=== PATIENT | female | born 1960 | race Caucasian/White ===

== ENCOUNTER → 2022-05-27 | Outpatient (CLI) | payer BC ==
--- NOTE | 2022-05-27 10:36 | USB ---
Reason for Exam: Clinical finding. Risk Values: Blanche 5 year model risk: 0.9%. NCI Lifetime model risk: 4.9%. Findings: The whole breast of the right breast, the axilla of the right breast and the retroareolar of the right breast were scanned. A complete US of all four quadrants of the breast, axilla, and retro-areolar region were reviewed. Suspicious hypoechoic, vascular mass with echogenic halo at the 11:00 position, 6 cm from the nipple. This measures 3.4 x 3.3 x 2.9 cm. There is an adjacent prominent low axillary tail 11:00 lymph node, 7 cm from the nipple measuring 11 x 9 x 9 mm. Cortical thickening up to 3.3 mm. No other axillary lymphadenopathy. No other solid or cystic lesion is seen. Overall Assessment: Incomplete: need additional imaging evaluation, BI-RAD 0 Management: Diagnostic Mammogram of both breasts. Electronically signed and approved by: Luh Lofton M.D. Radiologist
== END | disposition home or self-care (01) ==
LOC: RADUSWWP 09:47
PROVIDERS: ATTEND Internal Medicine
DX: N63.11 Unspecified lump in the right breast, upper outer quadrant (principal)

== ENCOUNTER → 2022-05-28 | Outpatient (CLI) | payer BC ==
[2022-05-28 13:07] VITALS: BP 143/82; PULSE 76; RESP 17; TEMP 98.1
--- NOTE | 2022-05-28 14:11 | P.GSHP ---
History of Present Illness H&P Date: 05/28/22 Chief Complaint: mass right breast Cora is a 61 year old white female seen in consultation for Dr. Dewitt regarding a mass in the right breast. She had a bilateral mammogram in September after which she was recommended to have a repeat right breast mammogram in 6 months. Most recently she noted a lump in her right breast May 19 and had a right breast mammogram and ultrasound performed revealing a lesion in the right breast which had changed from the September evaluation. She does not feel any other lumps masses or nodules of concern in either breast. She has not had any trauma to her breast. She is not complaining of any nipple discharge or skin changes. She's never had any surgery on her breast. The ultrasound revealed a 3.4 x 3.3 cm hypoechoic vascular mass at 11:00 There was also an adjacent prominent low axillary tail lymph node with cortical thickening up to 3.3 mm no other axillary lymphadenopathy Caffeine: 2 cups/day nicotine: stopped 2018 smoked for 10 years; 1/PPD chocolate: rare BCP: early for treatment of ovarian cyst Hormones: Negative Family History: mother: colon cancer father: lung cancer smoker maternal grandmother: colon cancer Patient had a colonoscopy 2021; to have it repeated in 2024 Hormonal History: menarche: 14 , breast fed: yes; age at first : 20 menopause: hysterectomy at 34; ? age at menopause done for endometriosis Surgical History: hysgterectomy tonsil/addenoid 2 ovarian surgeries right knee gallbladder 2 C-sections Medical History: hypothyroid hyperlipedemia diverticulosis Social History: nicotine: stopped 2017; as above alcohol: none drugs: none - Constitutional Constitutional: Denies chills, Denies fever - EENT Eyes: denies blurred vision, denies pain Ears: deny: decreased hearing, tinnitus Ears, nose, mouth and throat: Denies headache, Denies sore throat - Breasts Breasts: bilateral: as per HPI - Cardiovascular Cardiovascular: Denies chest pain, Denies shortness of breath - Respiratory Respiratory: Denies cough, Denies 7 - Gastrointestinal Gastrointestinal: Reports constipation, Reports diarrhea, Denies abdominal pain, Denies nausea, Denies vomiting - Genitourinary (Female) Genitourinary: Denies dysuria, Denies hematuria - Menstruation Menstruation: Reports postmenopausal - Musculoskeletal Musculoskeletal: Denies myalgias - Integumentary Integumentary: Denies pruritus, Denies rash - Neurological Neurological: Denies numbness, Denies weakness - Psychiatric Psychiatric: Denies anxiety, Denies depression - Endocrine Comment: hypothyroid - Hematologic/Lymphatic Comment: none - Allergic/Immunologic Comment: baby aspirin Allergic/Immunologic: Reports seasonal allergies Past Medical History Past Medical History: Hyperlipidemia, Thyroid Disorder Additional Past Medical History / Comment(s): diverticulosis History of Any Multi-Drug Resistant Organisms: None Reported Past Surgical History: Adenoidectomy, Section, Cholecystectomy, Hysterectomy, Orthopedic Surgery, Tonsillectomy Additional Past Surgical History / Comment(s): Right knee repair. Ovarian cyst removel. Past Anesthesia/Blood Transfusion Reactions: No Reported Reaction Past Psychological History: No Psychological Hx Reported Smoking Status: Former smoker Past Alcohol Use History: None Reported Additional Past Alcohol Use History / Comment(s): quit smoking 2017 Past Drug Use History: None Reported Medications and Allergies Home Medications Medication Instructions Recorded Confirmed Type Aspirin [Adult Low Dose Aspirin EC] 81 mg PO DAILY 05/28/22 05/28/22 History Atorvastatin [Lipitor] 20 mg PO DAILY 05/28/22 05/28/22 History Cholecalciferol [Vitamin D3 (10 10 mcg PO DAILY 05/28/22 05/28/22 History Mcg = 400 Iu)] Levothyroxine Sodium [Levoxyl] 125 mcg PO DAILY 05/28/22 05/28/22 History Multivitamin [Multivitamins Adult 1 tab PO DAILY 05/28/22 05/28/22 History Gummies] Allergies Allergy/AdvReac Type Severity Reaction Status Date / Time tetracycline Allergy Swelling Verified 05/28/22 12:57 levofloxacin [From Levaquin] AdvReac Nausea & Verified 05/28/22 12:57 Vomiting & Diarrhea Surgical - Exam Vital Signs Temp Pulse Resp BP Pulse Ox 98.1 F 76 17 143/82 99 05/28/22 13:04 05/28/22 13:04 05/28/22 13:04 05/28/22 13:04 05/28/22 13:04 - General no distress - Eyes normal ocular movement - ENT no hearing loss - Neck trachea midline - Respiratory normal respiratory effort - Cardiovascular Rhythm: regular Heart Sounds: normal: S1, S2 - Abdomen Abdomen: soft, non tender, no guarding, no rigid, no rebound - Integumentary normal turgor - Neurologic no disoriented, no combative - Musculoskeletal normal gait, normal posture - Psychiatric oriented to time, oriented to person, oriented to place, speech is normal, memory intact Breast Exam: BRA: 42DD Inspection: bilateral grade 3 ptosis palpation: right breast: Positional exam approximately 3 cm mass upper outer quadrant area freely mobile no other dominant masses or nodules of concern Right axilla: No adenopathy of concern Left breast: Multi-positional exam fibrocystic changes no dominant masses or nodules of concern Left axilla: No adenopathy of concern Results mammogram and ultrasound reviewed with radiology Assessment and Plan Assessment: Impression: Mass right breast Plan: Right breast core biopsy then follow up one week later Cc: Dr. Dewitt
== END ==
LOC: WWCWWP 12:46
PROVIDERS: ATTEND Surgery
DX: N63.11 Unspecified lump in the right breast, upper outer quadrant (principal); E78.5 Hyperlipidemia, unspecified; E07.9 Disorder of thyroid, unspecified; Z88.1 Allergy status to other antibiotic agents

== ENCOUNTER → 2022-06-09 | Day surgery (SDC) | payer BC ==
--- NOTE | 2022-06-01 18:54 | MM ---
Reason for Exam: Clinical finding. Patient History: Menarche at age 14. First Full-Term at age 20. Hysterectomy at age 34. Postmenopausal. Patient has history of breast feeding. Risk Values: Blanche 5 year model risk: 1.0%. NCI Lifetime model risk: 5.3%. Tissue Density: There are scattered fibroglandular densities. Findings: Analyzed By CAD. There is now a round, circumscribed appearing high density mass located in the upper outer quadrant of the right breast. 1.0 cm thickened upper-outer quadrant intramammary lymph node just adjacent. Biopsy of both of these areas is recommended. Otherwise, no significant change on the contralateral side. Overall Assessment: Suspicious, BI-RAD 4 Management: Ultrasound Core Biopsy of the right breast. 2 sites, including the thickened intramammary lymph node and adjacent dominant mass. The findings and recommendation were personally discussed with the patient following the workup. Electronically signed and approved by: Luh Lofton M.D. Radiologist
--- NOTE | 2022-06-15 11:51 | MM ---
Reason for Exam: Post Procedure Mammogram. Last screening mammogram was performed less than 1 month ago. Patient History: Menarche at age 14. First Full-Term at age 20. Hysterectomy at age 34. Postmenopausal. Patient has history of breast feeding. Risk Values: Blanche 5 year model risk: 1.0%. NCI Lifetime model risk: 5.3%. Prior Study Comparison: 05/27/2022 Right US breast RT, [facility]. 05/27/2022 Bilateral MG 3D diag mammo w/cad [facility], [facility]. Tissue Density: Right: There are scattered fibroglandular densities. Pathology Description: Location: 11 o'clock. Marker Left Behind. Cores: 6 Skin Nicks: 1 Gauge: 13 The procedure of ultrasound guided core biopsy was explained to the patient. Benefits, alternatives, and risks were discussed. An informed consent was then obtained. Specific discussion regarding bleeding risk was performed. A timeout was performed. The patient was placed in supine positioning for imaging and for the procedure. The overlying skin was prepped and draped in usual sterile fashion. Lidocaine was used as anesthetic into the skin and lidocaine with epinephrine for subcutaneous tissue up to area of concern in the right breast. A small skin estela was made with surgical scalpel. Under ultrasound guidance, a 12-gauge vacuum assisted biopsy gun device was used to obtain 6 core samples. A biopsy clip was left in lesion. Wing marker was placed. Intermammillary lymph node was then targeted. Lidocaine with epinephrine for subcutaneous tissue up to area of concern in the right breast. Same entrance site was utilized. Under ultrasound guidance, a 18-gauge vacuum assisted biopsy device (Stremor) was used to obtain 3 core samples. A biopsy clip was left in lesion. Butterfly hydromark marker was placed. The patient tolerated the procedure well without any immediate complication. Mild bleeding had occurred with the initial biopsy, this was easily controlled with pressure. The patient was kept in the radiology department for short stay after the procedure and then discharged home in stable condition. Postprocedure mammogram: The patient was transferred to mammography for physician ordered post procedure mammogram for clip placement verification. Impression: 1. Successful ultrasound-guided core biopsy right breast 2 adjacent locations. Recommendations: 1. Recommendations are pending pathology results. Pathology Results: Result: Malignant, Invasive ductal carcinoma. A. RIGHT BREAST, ELEVEN O'CLOCK, ULTRASOUND GUIDED NEEDLE CORE BIOPSY: Moderately differentiated ductal carcinoma (Grade 2), limited sample. See note. B. RIGHT BREAST, ELEVEN O'CLOCK, LYMPH NODE, NEEDLE CORE BIOPSY: Benign lymph node tissue. Notes Sections from part A show predominantly blood and detached clusters of severely atypical ductal epithelial cells consistent with ductal carcinoma. The specimen is limited for evaluation due to lack of. Pathology Description: Location: 11 o'clock. Marker Left Behind. Cores: 3 Gauge: 18 18g Bard, Lymph node. Overall Assessment: Malignant Assessment: MG diagnostic mammo RT wo CAD - Right: Known biopsy proven malignancy, BI-RAD 6. Management: Surgical Consultation of the right breast. Electronically signed and approved by: Andres Nielson D.O. Radiologis
== END ==
LOC: RADUSWWP 12:19
PROVIDERS: ATTEND Surgery
DX: N64.89 Other specified disorders of breast (principal); Z78.0 Asymptomatic menopausal state; R92.8 Other abnormal and inconclusive findings on diagnostic imaging of breast
CPT/HCPCS: 77066; 77065; 77062; 19083; A4648; 88305; 88341; 88342

== ENCOUNTER → 2022-06-16 | Outpatient (CLI) | payer BC ==
[2022-06-16 11:27] VITALS: BP 155/82; PULSE 90; RESP 18; TEMP 97.7
--- NOTE | 2022-06-16 11:59 | P.PN ---
Subjective Progress Note Date: 06/16/22 Principal diagnosis: right breast invasive ductal cancer [id number]; Stage IIA Cora is a 61 year old white female seen in consultation for Dr. Dewitt regarding a mass in the right breast. She had a bilateral mammogram in September after which she was recommended to have a repeat right breast mammogram in 6 months. Most recently she noted a lump in her right breast May 19 and had a right breast mammogram and ultrasound performed revealing a lesion in the right breast which had changed from the September evaluation. She does not feel any other lumps masses or nodules of concern in either breast. She has not had any trauma to her breast. She is not complaining of any nipple discharge or skin changes. She's never had any surgery on her breast. The ultrasound revealed a 3.4 x 3.3 cm hypoechoic vascular mass at 11:00 There was also an adjacent prominent low axillary tail lymph node with cortical thickening up to 3.3 mm no other axillary lymphadenopathy She underwent an ultrasound core biopsy of both lesions in the breast and 120 523. The 11:00 lesion revealed moderately differentiated ductal carcinoma grade 2. The 11:00 lesion second site revealed a benign lymph node. The tumor is ER/RI positive HER-2/sotero negative. It is grade 2. Caffeine: 2 cups/day nicotine: stopped 2018 smoked for 10 years; 1/PPD chocolate: rare BCP: early s for treatment of ovarian cyst Hormones: Negative Family History: mother: colon cancer father: lung cancer smoker maternal grandmother: colon cancer Patient had a colonoscopy 2021; to have it repeated in 2024 Hormonal History: menarche: 14 , breast fed: yes; age at first : 20 menopause: hysterectomy at 34; ? age at menopause done for endometriosis Surgical History: hysgterectomy tonsil/addenoid 2 ovarian surgeries right knee gallbladder 2 C-sections Medical History: hypothyroid hyperlipedemia diverticulosis Social History: nicotine: stopped 2018; as above alcohol: none drugs: none - Constitutional Constitutional: Denies chills, Denies fever - EENT Eyes: denies blurred vision, denies pain Ears: deny: decreased hearing, tinnitus Ears, nose, mouth and throat: Denies headache, Denies sore throat - Breasts Breasts: bilateral: as per HPI - Cardiovascular Cardiovascular: Denies chest pain, Denies shortness of breath - Respiratory Respiratory: Denies cough, Denies 7 - Gastrointestinal Gastrointestinal: Reports constipation, Reports diarrhea, Denies abdominal pain, Denies nausea, Denies vomiting - Genitourinary (Female) Genitourinary: Denies dysuria, Denies hematuria - Menstruation Menstruation: Reports postmenopausal - Musculoskeletal Musculoskeletal: Denies myalgias - Integumentary Integumentary: Denies pruritus, Denies rash - Neurological Neurological: Denies numbness, Denies weakness - Psychiatric Psychiatric: Denies anxiety, Denies depression - Endocrine Comment: hypothyroid - Hematologic/Lymphatic Comment: none - Allergic/Immunologic Comment: baby aspirin Allergic/Immunologic: Reports seasonal allergies Past Medical History Past Medical History: Hyperlipidemia, Thyroid Disorder Additional Past Medical History / Comment(s): diverticulosis History of Any Multi-Drug Resistant Organisms: None Reported Past Surgical History: Adenoidectomy, Section, Cholecystectomy, Hysterectomy, Orthopedic Surgery, Tonsillectomy Additional Past Surgical History / Comment(s): Right knee repair. Ovarian cyst removel. Past Anesthesia/Blood Transfusion Reactions: No Reported Reaction Past Psychological History: No Psychological Hx Reported Smoking Status: Former smoker Past Alcohol Use History: None Reported Additional Past Alcohol Use History / Comment(s): quit smoking 2017 Past Drug Use History: None Reported Medications and Allergies Home Medications Medication Instructions Recorded Confirmed Type Aspirin [Adult Low Dose Aspirin EC] 81 mg PO DAILY 05/28/22 05/28/22 History Atorvastatin [Lipitor] 20 mg PO DAILY 05/28/22 05/28/22 History Cholecalciferol [Vitamin D3 (10 10 mcg PO DAILY 05/28/22 05/28/22 History Mcg = 400 Iu)] Levothyroxine Sodium [Levoxyl] 125 mcg PO DAILY 05/28/22 05/28/22 History Multivitamin [Multivitamins Adult 1 tab PO DAILY 05/28/22 05/28/22 History Gummies] Allergies Allergy/AdvReac Type Severity Reaction Status Date / Time tetracycline Allergy Swelling Verified 05/28/22 12:57 levofloxacin [From Levaquin] AdvReac Nausea & Verified 05/28/22 12:57 Vomiting & Diarrhea Objective - Vital Signs Vital signs: Vital Signs Temp 97.7 F 06/16/22 11:23 Pulse 90 06/16/22 11:23 Resp 18 06/16/22 11:23 BP 155/82 06/16/22 11:23 Pulse Ox 98 06/16/22 11:23 FiO2 Intake & Output 06/15/22 06/16/22 06/16/22 18:59 06:59 18:59 Weight 92.533 kg - Constitutional General appearance: Present: cooperative - EENT Eyes: Present: EOMI ENT: Present: hearing grossly normal - Neck Neck: Present: normal ROM - Respiratory Respiratory: bilateral: CTA - Cardiovascular Heart sounds: normal: S1, S2 - Integumentary Integumentary Comment(s): Ecchymosis at biopsy site with a small hematoma right breast upper outer quadrant No evidence of any infection - Musculoskeletal Musculoskeletal: Present: gait normal - Psychiatric Psychiatric: Present: A&O x's 3, appropriate affect, intact judgment & insight Assessment and Plan Assessment: Impression: hypothyroid hyperlipedemia diverticulosis Stage II a invasive ductal carcinoma right breast Plan: Presentation of case at tumor board Oncotype on the tumor Appointment medical and radiation oncology CC: Dr. Dewitt
--- NOTE | 2022-06-16 12:53 | USB ---
Reason for Exam: Clinical finding. Patient History: Menarche at age 14. First Full-Term at age 20. Hysterectomy at age 34. Postmenopausal. Patient has history of breast feeding. Breast cancer, right, age 61. 06/09/2022, Malignant US biopsy breast VAD RT on the right side. 06/09/2022, US breast needle core RT on the Right side. Technique: Method: Targeted. Patient Position: Supine. Prior Study Comparison: 05/27/2022 Bilateral MG 3D diag mammo w/cad [facility], [facility]. 06/09/2022 Right MG diagnostic mammo RT wo CAD, [facility]. Findings: The axilla of the right breast was scanned. Evaluation of the right axilla reveals no solid or cystic mass. No evidence for adenopathy. Single normal-appearing lymph node is noted. Recently diagnosed breast CA. Overall Assessment: Benign, BI-RAD 2 Management: Surgical Consultation of both breasts. A clinical breast exam by your physician is recommended on an annual basis and results should be correlated with mammographic findings. This exam should not preclude additional follow-up of suspicious palpable abnormalities. Results were given to the patient verbally at the time of exam. Electronically signed and approved by: Yeyo Jackson M.D. Radiologis
== END ==
LOC: WWCWWP 11:10
PROVIDERS: ATTEND Surgery
DX: D05.11 Intraductal carcinoma in situ of right breast (principal); E03.9 Hypothyroidism, unspecified; E78.5 Hyperlipidemia, unspecified; K57.92 Diverticulitis of intestine, part unspecified, without perforation or abscess without bleeding; Z88.1 Allergy status to other antibiotic agents; Z88.8 Allergy status to other drugs, medicaments and biological substances; Z87.891 Personal history of nicotine dependence; Z79.890 Hormone replacement therapy; Z79.82 Long term (current) use of aspirin

== ENCOUNTER → 2022-07-29 | Outpatient (CLI) | payer BC ==
--- NOTE | 2022-07-29 14:17 | P.PN ---
Progress Note - Text Progress Note Date: 07/29/22 Cora is a 62 year old white female status post a right breast mastectomy and SNB on 07-20-22. 5 nodes removed all (-) for cancer. Tumor 3.5 cm all margins (-). Patient is doing very well. Lungs: Clear Heart: Regular rate and rhythm Incision chest wall clean and dry, no evidence of infection Patient has [address] TESSA #1 has minimal output and will be removed the other is approximately 40 mL per day will be left until next week Impression: Removed TESSA drain #1 Remove half of the shelby Follow-up next week Appointment medical oncology Appointment radiation oncology CC: Dr. Dewitt
[2022-07-29 14:39] VITALS: BP 154/80; PULSE 92; RESP 17; TEMP 98.9
== END ==
LOC: WWCWWP 14:03
PROVIDERS: ATTEND Surgery
DX: Z85.3 Personal history of malignant neoplasm of breast (principal); Z88.8 Allergy status to other drugs, medicaments and biological substances; Z88.1 Allergy status to other antibiotic agents

== ENCOUNTER → 2022-08-06 | Outpatient (CLI) | payer BC ==
[2022-08-06 08:54] VITALS: BP 130/84; PULSE 89; RESP 18; TEMP 97.9
--- NOTE | 2022-08-06 09:08 | P.PN ---
Progress Note - Text Progress Note Date: 08/06/22 Cora is a 62 year old white female status post a right breast mastectomy and SNB on 07-20-22. 5 nodes removed all (-) for cancer. Tumor 3.5 cm all margins (- ). Patient is doing very well. Patient seen by medical oncology and told she will not need radiation. She saw Dr. Mcdonald medical oncology and awaiting oncotype results. She will follow up with him. Lungs: Clear Heart: Regular rate and rhythm Incision chest wall clean and dry, no evidence of infection Patient has 1 TESSA drain at this time, minimal output. Impression: mastectomy bra and prosthesis Removed TESSA drain Remove shelby Follow-up Appointment medical oncology follow up 4 months CC: Dr. Dewitt
== END ==
LOC: WWCWWP 08:38
PROVIDERS: ATTEND Surgery
DX: Z85.3 Personal history of malignant neoplasm of breast (principal); Z44 Encounter for fitting and adjustment of external prosthetic device; Z48.03 Encounter for change or removal of drains; Z48.02 Encounter for removal of sutures; Z88.1 Allergy status to other antibiotic agents; Z79.82 Long term (current) use of aspirin; Z88.8 Allergy status to other drugs, medicaments and biological substances

== ENCOUNTER → 2022-09-03 | Outpatient (CLI) | payer BC ==
--- NOTE | 2022-09-06 05:22 | PE ---
EXAMINATION TYPE: PET CT fusion skull to thigh DATE OF EXAM: 09/03/2022 COMPARISON: Most recent mammogram June 09, 2022 HISTORY: Upper outer quadrant right breast neoplasm diagnosed in May completed chemotherapy Aug TECHNIQUE: Following the intravenous administration of 9.37 mCi of F-18 FDG, whole body images are p erformed from the skull base to the midthigh. Images are reviewed on the computer in the coronal, ax ial, and sagittal planes. Reconstructed rotating images are created on independent workstation and r eviewed on the computer. A localization and attenuation correction CT is performed in conjunction w ith the PET scan. Blood glucose level equals 101. SCAN: Initial Scan FINDINGS: SKULL BASE AND NECK: No areas of abnormal hypermetabolic uptake CHEST, MEDIASTINUM, AND HILAR REGION: Right breast is surgically absent. No areas of abnormal hyperme tabolic uptake. ABDOMEN AND PELVIS: Nonspecific scattered bowel uptake. Normal excretion. No definitive abnormal hype rmetabolic uptake. OSSEOUS STRUCTURES: No abnormal hypermetabolic uptake. OTHER CT: Cholecystectomy clips are seen. Uterus is surgically absent. IMPRESSION: Posttreatment changes to the right breast are seen. No areas of abnormal hypermetabolic u ptake identified to suggest active or recurrent malignancy.
== END | disposition home or self-care (01) ==
LOC: RADPETMAIN 13:22
PROVIDERS: ATTEND Internal Medicine Hematology & Oncology
DX: C50.411 Malignant neoplasm of upper-outer quadrant of right female breast (principal)
CPT/HCPCS: 78815; A9552

== ENCOUNTER 2022-09-19 01:24 | Emergency (ER) | payer BC ==
--- NOTE | 2022-09-19 02:01 | ED ---
General Adult HPI - General Chief complaint: Shortness of Breath Stated complaint: back pain,UTI Time Seen by Provider: 09/19/22 01:49 Source: patient Mode of arrival: ambulatory Limitations: no limitations - History of Present Illness Initial comments: This patient is a 62-year-old woman, currently taking chemotherapy for breast cancer, who noticed the onset of urinary frequency, dysuria, and hematuria starting this evening. She states that the symptoms have worsened so she presented here. She has not noted fevers or chills. No back pain. There is suprapubic discomfort, worse with urination. -: hour(s) Location: abdomen Radiation: non-radiation Quality: burning, aching Consistency: constant Improves with: none Worsens with: other (Urination) Associated Symptoms: other Treatments Prior to Arrival: other (Tylenol) - Related Data Home Medications Medication Instructions Recorded Confirmed Aspirin [Adult Low Dose Aspirin EC] 81 mg PO DAILY 05/28/22 08/06/22 Atorvastatin [Lipitor] 20 mg PO HS 05/28/22 08/06/22 Cholecalciferol [Vitamin D3 (10 10 mcg PO DAILY 05/28/22 08/06/22 Mcg = 400 Iu)] Levothyroxine Sodium [Levoxyl] 100 mcg PO DAILY 05/28/22 08/06/22 Multivitamin [Multivitamins Adult 1 tab PO DAILY 05/28/22 08/06/22 Gummies] Previous Rx's Medication Instructions Recorded Cephalexin [Keflex] 500 mg PO Q6HR #28 cap 09/19/22 Phenazopyridine [Pyridium] 100 mg PO TID #6 tablet 09/19/22 Allergies Allergy/AdvReac Type Severity Reaction Status Date / Time tetracycline Allergy Swelling Verified 08/06/22 08:46 levofloxacin [From Levaquin] AdvReac Nausea & Verified 08/06/22 08:46 Vomiting & Diarrhea Review of Systems ROS Statement: Those systems with pertinent positive or pertinent negative responses have been documented in the HPI. ROS Other: All systems not noted in ROS Statement are negative. Constitutional: Denies: fever, chills Respiratory: Denies: cough, dyspnea Cardiovascular: Denies: chest pain, palpitations, edema Gastrointestinal: Reports: abdominal pain. Denies: nausea, vomiting, diarrhea, constipation Genitourinary: Reports: dysuria, frequency, hematuria Musculoskeletal: Denies: back pain Skin: Denies: rash Neurological: Denies: headache, weakness, numbness Past Medical History Past Medical History: Cancer, Hyperlipidemia, Thyroid Disorder Additional Past Medical History / Comment(s): diverticulosis, new dx. breast cancer History of Any Multi-Drug Resistant Organisms: None Reported Past Surgical History: Adenoidectomy, Section, Cholecystectomy, H ysterectomy, Orthopedic Surgery, Tonsillectomy Additional Past Surgical History / Comment(s): Right knee repair. Ovarian cyst removed, C/Sx2. Past Anesthesia/Blood Transfusion Reactions: Postoperative Nausea & Vomiting (PONV) Additional Past Anesthesia/Blood Transfusion Reaction / Comment(s): one time episode after surgery was nauseated Past Psychological History: No Psychological Hx Reported Smoking Status: Never smoker Past Alcohol Use History: None Reported Past Drug Use History: None Reported General Exam Limitations: no limitations General appearance: alert, in no apparent distress Head exam: Present: atraumatic, normocephalic Eye exam: Present: normal appearance Respiratory exam: Present: normal lung sounds bilaterally. Absent: respiratory distress, wheezes, rales, rhonchi, stridor Cardiovascular Exam: Present: regular rate, normal rhythm, normal heart sounds. Absent: systolic murmur, diastolic murmur, rubs, gallop GI/Abdominal exam: Present: soft. Absent: distended, tenderness, guarding, rebound, rigid, mass Extremities exam: Present: normal inspection, normal capillary refill. Absent: pedal edema, calf tenderness Back exam: Present: normal inspection. Absent: CVA tenderness (R), CVA tenderness (L) Neurological exam: Present: alert Skin exam: Present: warm, dry, intact, normal color. Absent: rash Course Vital Signs 09/19/22 09/19/22 01:29 05:41 Temperature 97.5 F L Pulse Rate 95 99 Respiratory 17 16 Rate Blood Pressure 122/86 123/78 O2 Sat by Pulse 97 97 Oximetry Medical Decision Making - Medical Decision Making Was pt. sent in by a medical professional or institution (, PA, LOSS PREVENTION INVESTIGATOR, urgent care, hospital, or senior care...) When possible be specific @ -[No] Did you speak to anyone other than the patient for history (EMS, parent, family, police, friend...)? What history was obtained from this source @ -[No] Did you review nursing and triage notes (agree or disagree)? Why? @ -[I reviewed and agree with nursing and triage notes] Were old charts reviewed (outside hosp., previous admission, EMS record, old EKG, old radiological studies, urgent care reports/EKG's, senior care records)? Report findings @ -[No old charts were reviewed] Differential Diagnosis (chest pain, altered mental status, abdominal pain women, abdominal pain men, vaginal bleeding, weakness, fever, dyspnea, syncope, he adache, dizziness, GI bleed, back pain, seizure, CVA, palpatations, mental health, musculoskeletal)? @ -[Differential Fever: Pneumonia, viral URI, endocarditis, myocarditis, pericarditis, otitis, sinusitis, peritonsillar Abscess, retropharyngeal Abscess, epiglottitis, peritonitis, appendicitis, Chloe cystitis, diverticulitis, hepatitis, colitis, UTI, PID, TOA, pyelonephritis, prostatitis, epididymitis, meningitis, encephalitis, pulmonary embolism, CVA, thyroid storm, pancreatitis, adrenal crisis, cavernous sinus thrombosis, this is not meant to be an all-inclusive list. EKG interpreted by me (3pts min.). @ -[ X-rays interpreted by me (1pt min.). @ -[None done] CT interpreted by me (1pt min.). @ -[None done] U/S interpreted by me (1pt. min.). @ -[None done] What testing was considered but not performed or refused? (CT, X-rays, U/S, labs)? Why? @ -[None] What meds were considered but not given or refused? Why? @ -[None] Did you discuss the management of the patient with other professionals (professionals i.e. , PA, LOSS PREVENTION INVESTIGATOR, lab, RT, psych nurse, social media marketing analyst, log marker, teacher, industrial relations officer, rifle case repairer)? Give summary @ -[No] Was smoking cessation discussed for >3mins.? @ -[No] Was critical care preformed (if so, how long)? @ -[No] Were there social determinants of health that impacted care today? How? (Homelessness, low income, unemployed, alcoholism, drug addiction, transportat ion, low edu. Level, literacy, decrease access to med. care, fci, rehab)? @ -[No] Was there de-escalation of care discussed even if they declined (Discuss DNR or withdrawal of care, Hospice)? DNR status @ -[No] What co-morbidities impacted this encounter? (DM, HTN, Smoking, COPD, CAD, Cancer, CVA, ARF, Chemo, Hep., AIDS, mental health diagnosis, sleep apnea, morbid obesity)? @ -[None] Was patient admitted / discharged? Hospital course, mention meds given and route, prescriptions, significant lab abnormalities, going to OR and other pertinent info. @ -[Discharged with close follow-up Undiagnosed new problem with uncertain prognosis? @ -[No] Drug Therapy requiring intensive monitoring for toxicity (Heparin, Nitro, Insulin, Cardizem)? @ -[No] Were any procedures done? @ -[No] Diagnosis/symptom? @ -[Acute urinary tract infection Acute, or Chronic, or Acute on Chronic? @ -[Acute Uncomplicated (without systemic symptoms) or Complicated (systemic symptoms)? @ -[d uncomplicated Side effects of treatment? @ -[No] Exacerbation, Progression, or Severe Exacerbation? @ -[No] Poses a threat to life or bodily function? How? (Chest pain, [place], [place], pneumonia, PE, COPD, DKA, ARF, appy, cholecystitis, CVA, Diverticulitis, Homicidal, Suicidal, threat to staff... and all critical care pts) @ -[No] - Lab Data Result diagrams: 09/19/22 03:51 09/19/22 03:51 Lab Results 09/19/22 09/19/22 09/19/22 Range/Units 01:50 03:51 03:51 WBC 22.4 H (3.8-10.6) k/uL RBC 4.80 (3.80-5.40) m/uL Hgb 14.5 (11.4-16.0) gm/dL Hct 45.3 (34.0-46.0) % MCV 94.3 (80.0-100.0) fL MCH 30.2 (25.0-35.0) pg MCHC 32.1 (31.0-37.0) g/dL RDW 13.7 (11.5-15.5) % Plt Count 416 (150-450) k/uL MPV 8.9 Neutrophils % (Manual) 94 % Band Neuts % (Manual) 3 % Lymphocytes % (Manual) 2 % Metamyelocytes % 1 % Neutrophils # (Manual) 21.70 H (1.3-7.7) k/uL Lymphocytes # (Manual) 0.45 L (1.0-4.8) k/uL Metamyelocytes # (Man) 0.22 H (0) k/uL Nucleated RBCs 0 (0-0) /100 WBC Manual Slide Review Performed Sodium 137 (137-145) mmol/L Potassium 4.3 (3.5-5.1) mmol/L Chloride 98 (98-107) mmol/L Carbon Dioxide 28 (22-30) mmol/L Anion Gap 11 mmol/L BUN 15 (7-17) mg/dL Creatinine 0.59 (0.52-1.04) mg/dL Est GFR (CKD-EPI)AfAm >90 (>60 ml/min/1.73 sqM) Est GFR (CKD-EPI)NonAf >90 (>60 ml/min/1.73 sqM) Glucose 99 (74-99) mg/dL Calcium 9.6 (8.4-10.2) mg/dL Total Bilirubin 0.8 (0.2-1.3) mg/dL AST 24 (14-36) U/L ALT 27 (4-34) U/L Alkaline Phosphatase 124 (38-126) U/L Total Protein 7.7 (6.3-8.2) g/dL Albumin 4.6 (3.5-5.0) g/dL Urine Color Red Urine Appearance Turbid H (Clear) Urine pH 6.0 (5.0-8.0) Ur Specific [place] 1.022 (1.001-1.035) Urine Protein 2+ H (Negative) Urine Glucose (UA) Negative (Negative) Urine Ketones Negative (Negative) Urine Blood Large H (Negative) Urine Nitrite Positive H (Negative) Urine Bilirubin Negative (Negative) Urine Urobilinogen <2.0 (<2.0) mg/dL Ur Leukocyte Esterase Large H (Negative) Urine RBC >182 H (0-5) /hpf Urine WBC >182 H (0-5) /hpf Ur Squamous Epith Cells 3 (0-4) /hpf Urine Bacteria Occasional H (None) /hpf Urine Mucus Rare H (None) /hpf Disposition Clinical Impression: Urinary tract infection Disposition: HOME SELF-CARE Condition: Good Instructions (If sedation given, give patient instructions): Urinary Tract Infection in Women (ED) Prescriptions: Cephalexin [Keflex] 500 mg PO Q6HR #28 cap Phenazopyridine [Pyridium] 100 mg PO TID #6 tablet Is patient prescribed a controlled substance at d/c from ED?: No Referrals: Jesús Dewitt MD [Primary Care Provider] - 1-2 days
[2022-09-19 02:41] VITALS: TEMP 97.5
[2022-09-19 02:57] LABS: Appearance,Urine Turbid (Clear); Bacteria,Urine Occasional /hpf; Bilirubin,Urine Negative (Negative); Blood,Urine Large (Negative); Color,Urine Red; Glucose,Urine (UA) Negative (Negative); Ketones,Urine Negative (Negative); Leukocyte Esterase,Urine Large (Negative); Mucus,Urine Rare /hpf; Nitrite,Urine Positive (Negative); Protein,Urine 2+ (Negative); RBC,Urine >182 /hpf (0-5); Specific Gravity,Urine 1.022 (1.001-1.035); Squamous Epithelial Cell,Urine 3 /hpf (0-4); Urobilinogen,Urine <2.0 mg/dL (<2.0); WBC,Urine >182 /hpf (0-5)
[2022-09-19] MEDS ORDERED: HYDROcodone/APAP 5-325MG 1 EACH TAB PO STA (03:14)
[2022-09-19] MEDS ORDERED: CEPHALEXIN 500 MG CAP PO STA (03:14)
[2022-09-19 04:11] LABS: HCT 45.3 % (34.0-46.0); HGB 14.5 gm/dL (11.4-16.0); MCH 30.2 pg (25.0-35.0); MCHC 32.1 g/dL (31.0-37.0); MCV 94.3 fL (80.0-100.0); Mean Platelet Volume 8.9; Platelet Count 416 k/uL (150-450); RDW 13.7 % (11.5-15.5); WBC 22.4 k/uL (3.8-10.6)
[2022-09-19 04:17] LABS: ALT 27 U/L (4-34); AST 24 U/L (14-36); African American GFR (CKD) >90 (>60 ml/min/1.73 sqM); Albumin 4.6 g/dL (3.5-5.0); Alkaline Phosphatase 124 U/L (38-126); Anion Gap 11 mmol/L; Blood Urea Nitrogen 15 mg/dL (7-17); Calcium 9.6 mg/dL (8.4-10.2); Carbon Dioxide 28 mmol/L (22-30); Chloride 98 mmol/L (98-107); Glucose 99 mg/dL (74-99); Non-African American GFR(CKD) >90 (>60 ml/min/1.73 sqM); Potassium 4.3 mmol/L (3.5-5.1); Sodium 137 mmol/L (137-145); Total Bilirubin 0.8 mg/dL (0.2-1.3); Total Protein 7.7 g/dL (6.3-8.2)
[2022-09-19 05:37] LABS: Band Neutrophils % 3 %; Lymphocytes # (M) 0.45 k/uL (1.0-4.8); Metamyelocytes # (M) 0.22 k/uL (0); Metamyelocytes % 1 %; Neutrophils % (M) 94 %; Nucleated Red Blood Cells 0 /100 WBC (0-0); Total Cells Counted 100
[2022-09-19] MEDS ORDERED: PHENAZOPYRIDINE 100 MG TAB PO STA (05:39)
[2022-09-19 05:46] VITALS: BP 123/78; PULSE 99; RESP 16
== END 2022-09-19 05:58 | disposition home or self-care (01) ==
LOC: EC 01:24
DX: N39.0 Urinary tract infection, site not specified (principal); E07.9 Disorder of thyroid, unspecified; E78.5 Hyperlipidemia, unspecified; Z79.82 Long term (current) use of aspirin; Z79.899 Other long term (current) drug therapy; Z79.890 Hormone replacement therapy; Z88.1 Allergy status to other antibiotic agents; Z90.49 Acquired absence of other specified parts of digestive tract
CPT/HCPCS: 36415; 80053; 81001; 85025; 87077; 87086; 87186; 99284

== ENCOUNTER 2022-11-03 09:32 | Inpatient (IN) | payer BC ==
--- NOTE | 2022-11-03 10:39 | ED ---
General Adult HPI - General Chief complaint: Fever Stated complaint: fever,cancer patient Time Seen by Provider: 11/03/22 10:08 Source: patient, RN notes reviewed Mode of arrival: ambulatory Limitations: no limitations - History of Present Illness Initial comments: 62-year-old female presents emergency Department with chief complaint of fever 2 days. Patient states that she is a chemotherapy patient for breast cancer with her most recent chemotherapy treatment on . Patient reports a fever of 101 this morning and yesterday. She reports yesterday she took her temperature which was 101. She called her oncologists office who recommended sh e take Tylenol, monitor her temperature income to the emergency Department if it persists. She states this morning she also had a temperature of 101. her oncologist is Dr. Mcdonald. She also states that she hasn't been feeling well since her treatment on and over the weekend developed frequent bowel movements that turned into watery diarrhea yesterday and today. She states that she gets diffuse abdominal cramping which is followed by watery stool. She states that she is taken Imodium and Zofran for diarrhea and nausea. Prior abdominal surgeries include 2 prior C-sections, cholecystectomy. She denies vomiting. Denies cough, sore throat, nasal congestion. Past medical history includes breast cancer, hypothyroidism, hyperlipidemia. - Related Data Home Medications Medication Instructions Recorded Confirmed Aspirin [Adult Low Dose Aspirin EC] 81 mg PO PC-LUNCH 05/28/22 11/03/22 Atorvastatin [Lipitor] 20 mg PO HS 05/28/22 11/03/22 Cholecalciferol [Vitamin D3 (25 25 mcg PO PC-LUNCH 11/03/22 11/03/22 Mcg = 1000 Iu)] Fluconazole [Diflucan] 100 mg PO DAILY 11/03/22 11/03/22 Levothyroxine Sodium [Synthroid] 100 mcg PO DAILY 11/03/22 11/03/22 Loperamide HCl [Imodium A-D] 2 - 4 mg PO QID PRN 11/03/22 11/03/22 Multivitamins, Thera [Multivitamin 1 tab PO PC-LUNCH 11/03/22 11/03/22 (formulary)] Ondansetron [Zofran] 4 mg PO Q4H PRN 11/03/22 11/03/22 Allergies Allergy/AdvReac Type Severity Reaction Status Date / Time tetracycline Allergy Tongue Verified 11/03/22 15:03 Swelling levofloxacin [From Levaquin] AdvReac Nausea & Verified 11/03/22 15:03 Vomiting & Diarrhea Review of Systems ROS Statement: Those systems with pertinent positive or pertinent negative responses have been documented in the HPI. ROS Other: All systems not noted in ROS Statement are negative. Past Medical History Past Medical History: Cancer, Hyperlipidemia, Thyroid Disorder Additional Past Medical History / Comment(s): diverticulosis, new dx. breast ca ncer History of Any Multi-Drug Resistant Organisms: None Reported Past Surgical History: Adenoidectomy, Section, Cholecystectomy, Hysterectomy, Orthopedic Surgery, Tonsillectomy Additional Past Surgical History / Comment(s): Right knee repair. Ovarian cyst removed, C/Sx2. Past Anesthesia/Blood Transfusion Reactions: Postoperative Nausea & Vomiting (PONV) Additional Past Anesthesia/Blood Transfusion Reaction / Comment(s): one time episode after surgery was nauseated Past Psychological History: No Psychological Hx Reported Smoking Status: Never smoker Past Alcohol Use History: None Reported Past Drug Use History: None Reported General Exam Limitations: no limitations General appearance: alert, in no apparent distress Head exam: Present: atraumatic, normocephalic, normal inspection Eye exam: Present: normal appearance, PERRL, EOMI. Absent: scleral icterus, conjunctival injection, periorbital swelling ENT exam: Present: normal exam, mucous membranes moist Neck exam: Present: normal inspection. Absent: tenderness, meningismus, lymphadenopathy Respiratory exam: Present: normal lung sounds bilaterally. Absent: respiratory distress, wheezes, rales, rhonchi, stridor Cardiovascular Exam: Present: regular rate, normal rhythm, normal heart sounds. Absent: systolic murmur, diastolic murmur, rubs, gallop, clicks GI/Abdominal exam: Present: soft, normal bowel sounds. Absent: distended, tenderness, guarding, rebound, rigid Extremities exam: Present: normal inspection, full ROM, normal capillary refill. Absent: tenderness, pedal edema, joint swelling, calf tenderness Back exam: Present: normal inspection Neurological exam: Present: alert, oriented X3, CN II-XII intact Psychiatric exam: Present: normal affect, normal mood Skin exam: Present: warm, dry, intact, normal color. Absent: rash Course Vital Signs 11/03/22 11/03/22 11/03/22 09:56 13:44 16:03 Temperature 98.7 F Pulse Rate 102 H 104 H 101 H Respiratory 20 18 18 Rate Blood Pressure 134/81 131/62 113/65 O2 Sat by Pulse 96 96 95 Oximetry Medical Decision Making - Medical Decision Making Was pt. sent in by a medical professional or institution (SANJU Chaparro, ROAD PRODUCTION GENERAL MANAGER, urgent care, hospital, or [place] health care facility...) When possible be specific @ -No Did you speak to anyone other than the patient for history (EMS, parent, family, police, friend...)? What history was obtained from this source @ -No Did you review nursing and triage notes (agree or disagree)? Why? @ -I reviewed and agree with nursing and triage notes Were old charts reviewed (outside hosp., previous admission, EMS record, old EKG, old radiological studies, urgent care reports/EKG's, [place] health care facility records)? Report findings @ -No old charts were reviewed Differential Diagnosis (chest pain, altered mental status, abdominal pain women, abdominal pain men, vaginal bleeding, weakness, fever, dyspnea, syncope, headache, dizziness, GI bleed, back pain, seizure, CVA, palpatations, mental health, musculoskeletal)? @ -Differential Fever: Pneumonia, viral URI, endocarditis, myocarditis, pericarditis, otitis, sinusitis, peritonsillar Abscess, retropharyngeal Abscess, epiglottitis, peritonitis, appendicitis, Chloe cystitis, diverticulitis, hepatitis, colitis, UTI, PID, TOA, pyelonephritis, prostatitis, epididymitis, meningitis, encephalitis, pulmonary embolism, CVA, thyroid storm, pancreatitis, adrenal crisis, cavernous sinus thrombosis, this is not meant to be an all-inclusive list. EKG interpreted by me (3pts min.). @ -None X-rays interpreted by me (1pt min.). @ -Chest x-ray showed no evidence of acute cardiopulmonary process CT interpreted by me (1pt min.). @ -None done U/S interpreted by me (1pt. min.). @ -None done What testing was considered but not performed or refused? (CT, X-rays, U/S, labs)? Why? @ -None What meds were considered but not given or refused? Why? @ -None Did you discuss the management of the patient with other professionals (professionals i.e. Dr., PA, ROAD PRODUCTION GENERAL MANAGER, lab, RT, psych nurse, social work manager, order builder, teacher, foreign policy officer, family preservation caseworker)? Give summary @ -Case was discussed with Reuben Gregg NP with oncology. He spoke with Dr. Mcdonald and reviewed the patient's chemotherapy regimen and recommended admission of the patient Case also discussed with Lary Hodges with [facility] who was accepting of the admission Was smoking cessation discussed for >3mins.? @ -No Was critical care preformed (if so, how long)? @ -No Were there social determinants of health that impacted care today? How? (Homelessness, low income, unemployed, alcoholism, drug addiction, transportation, low edu. Level, literacy, decrease access to med. care, detention, r ehab)? @ -No Was there de-escalation of care discussed even if they declined (Discuss DNR or withdrawal of care, Hospice)? DNR status @ -No What co-morbidities impacted this encounter? (DM, HTN, Smoking, COPD, CAD, Cancer, CVA, ARF, Chemo, Hep., AIDS, mental health diagnosis, sleep apnea, morbid obesity)? @ -None Was patient admitted / discharged? Hospital course, mention meds given and route, prescriptions, significant lab abnormalities, going to OR and other pertinent info. @ -Admitted. Patient has past medical history of breast cancer with last chemotherapy treatment on reporting to the emergency department for chief complaint of fever. Patient is afebrile at the time of arrival to the emergency department. Patient states that her temperature was 101 yesterday morning and this morning. CBC showed RBC of 3.3, hemoglobin 12.2, hematocrit 37.3, neutrophils 1.1; CMP showed sodium 133, potassium 4.1, chloride 98, BUN 6, creatinine 0.46; lactic acid 1.0; UA negative; influenza, RSV, Covid negative; chest x-ray showed no evidence for acute process. Case is discussed with Reuben Gregg NP who reviewed the patient's chemotherapy regimen and recommended admission. Case was also discussed with Lary Hodges with [facility] who is accepting of the admission. Undiagnosed new problem with uncertain prognosis? @ -No Drug Therapy requiring intensive monitoring for toxicity (Heparin, Nitro, In sulin, Cardizem)? @ -No Were any procedures done? @ -No Diagnosis/symptom? @ -Fever Acute, or Chronic, or Acute on Chronic? @ -Acute Uncomplicated (without systemic symptoms) or Complicated (systemic symptoms)? @ -complicated Side effects of treatment? @ -No Exacerbation, Progression, or Severe Exacerbation? @ -No Poses a threat to life or bodily function? How? (Chest pain, [place], [place], pneumonia, PE, COPD, DKA, ARF, appy, cholecystitis, CVA, Diverticulitis, Homicidal, Suicidal, threat to staff... and all critical care pts) @ -No - Lab Data Result diagrams: 11/03/22 10:54 11/03/22 10:54 Lab Results 11/03/22 11/03/22 11/03/22 Range/Units 10:54 10:54 10:54 WBC 3.3 L (3.8-10.6) k/uL RBC 3.91 (3.80-5.40) m/uL Hgb 12.2 (11.4-16.0) gm/dL Hct 37.3 (34.0-46.0) % MCV 95.3 (80.0-100.0) fL MCH 31.1 (25.0-35.0) pg MCHC 32.7 (31.0-37.0) g/dL RDW 14.7 (11.5-15.5) % Plt Count 211 (150-450) k/uL MPV 8.7 Neutrophils % (Manual) 33 % Band Neuts % (Manual) 2 % Lymphocytes % (Manual) 44 % Monocytes % (Manual) 20 % Eosinophils % (Manual) 2 % Basophils % (Manual) 1 % Neutrophils # (Manual) 1.10 L (1.3-7.7) k/uL Lymphocytes # (Manual) 1.45 (1.0-4.8) k/uL Monocytes # (Manual) 0.66 (0-1.0) k/uL Eosinophils # (Manual) 0.07 (0-0.7) k/uL Basophils # (Manual) 0.03 (0-0.2) k/uL Nucleated RBCs 0 (0-0) /100 WBC Manual Slide Review Performed Sodium 133 L (137-145) mmol/L Potassium 4.1 (3.5-5.1) mmol/L Chloride 98 (98-107) mmol/L Carbon Dioxide 22 (22-30) mmol/L Anion Gap 13 mmol/L BUN 6 L (7-17) mg/dL Creatinine 0.46 L (0.52-1.04) mg/dL Est GFR (CKD-EPI)AfAm >90 (>60 ml/min/1.73 sqM) Est GFR (CKD-EPI)NonAf >90 (>60 ml/min/1.73 sqM) Glucose 98 (74-99) mg/dL Plasma Lactic Acid Abdulkadir (0.7-2.0) mmol/L Calcium 9.3 (8.4-10.2) mg/dL Total Bilirubin 0.9 (0.2-1.3) mg/dL AST 29 (14-36) U/L ALT 24 (4-34) U/L Alkaline Phosphatase 96 (38-126) U/L Total Protein 7.0 (6.3-8.2) g/dL Albumin 4.1 (3.5-5.0) g/dL Urine Color Light Yellow Urine Appearance Clear (Clear) Urine pH 7.0 (5.0-8.0) Ur Specific [place] 1.005 (1.001-1.035) Urine Protein Negative (Negative) Urine Glucose (UA) Negative (Negative) Urine Ketones Negative (Negative) Urine Blood Negative (Negative) Urine Nitrite Negative (Negative) Urine Bilirubin Negative (Negative) Urine Urobilinogen <2.0 (<2.0) mg/dL Ur Leukocyte Esterase Negative (Negative) Influenza Type A (PCR) (Not Detectd) Influenza Type B (PCR) (Not Detectd) RSV (PCR) (Not Detectd) SARS-CoV-2 (PCR) (Not Detectd) 11/03/22 11/03/22 Range/Units 10:54 11:11 WBC (3.8-10.6) k/uL RBC (3.80-5.40) m/uL Hgb (11.4-16.0) gm/dL Hct (34.0-46.0) % MCV (80.0-100.0) fL MCH (25.0-35.0) pg MCHC (31.0-37.0) g/dL RDW (11.5-15.5) % Plt Count (150-450) k/uL MPV Neutrophils % (Manual) % Band Neuts % (Manual) % Lymphocytes % (Manual) % Monocytes % (Manual) % Eosinophils % (Manual) % Basophils % (Manual) % Neutrophils # (Manual) (1.3-7.7) k/uL Lymphocytes # (Manual) (1.0-4.8) k/uL Monocytes # (Manual) (0-1.0) k/uL Eosinophils # (Manual) (0-0.7) k/uL Basophils # (Manual) (0-0.2) k/uL Nucleated RBCs (0-0) /100 WBC Manual Slide Review Sodium (137-145) mmol/L Potassium (3.5-5.1) mmol/L Chloride (98-107) mmol/L Carbon Dioxide (22-30) mmol/L Anion Gap mmol/L BUN (7-17) mg/dL Creatinine (0.52-1.04) mg/dL Est GFR (CKD-EPI)AfAm (>60 ml/min/1.73 sqM) Est GFR (CKD-EPI)NonAf (>60 ml/min/1.73 sqM) Glucose (74-99) mg/dL Plasma Lactic Acid Abdulkadir 1.0 (0.7-2.0) mmol/L Calcium (8.4-10.2) mg/dL Total Bilirubin (0.2-1.3) mg/dL AST (14-36) U/L ALT (4-34) U/L Alkaline Phosphatase (38-126) U/L Total Protein (6.3-8.2) g/dL Albumin (3.5-5.0) g/dL Urine Color Urine Appearance (Clear) Urine pH (5.0-8.0) Ur Specific [place] (1.001-1.035) Urine Protein (Negative) Urine Glucose (UA) (Negative) Urine Ketones (Negative) Urine Blood (Negative) Urine Nitrite (Negative) Urine Bilirubin (Negative) Urine Urobilinogen (<2.0) mg/dL Ur Leukocyte Esterase (Negative) Influenza Type A (PCR) Not Detected (Not Detectd) Influenza Type B (PCR) Not Detected (Not Detectd) RSV (PCR) Not Detected (Not Detectd) SARS-CoV-2 (PCR) Not Detected (Not Detectd) Disposition Clinical Impression: Fever Disposition: ADMITTED IP TO THIS HOSP Condition: Stable Is patient prescribed a controlled substance at d/c from ED?: No Referrals: Jesús Dewitt MD [Primary Care Provider] - 1-2 days
[2022-11-03 11:16] LABS: HCT 37.3 % (34.0-46.0); HGB 12.2 gm/dL (11.4-16.0); MCH 31.1 pg (25.0-35.0); MCHC 32.7 g/dL (31.0-37.0); MCV 95.3 fL (80.0-100.0); Mean Platelet Volume 8.7; Platelet Count 211 k/uL (150-450); RBC 3.91 m/uL (3.80-5.40); RDW 14.7 % (11.5-15.5); WBC 3.3 k/uL (3.8-10.6)
[2022-11-03 11:31] LABS: ALT 24 U/L (4-34); African American GFR (CKD) >90 (>60 ml/min/1.73 sqM); Albumin 4.1 g/dL (3.5-5.0); Anion Gap 13 mmol/L; Blood Urea Nitrogen 6 mg/dL (7-17); Calcium 9.3 mg/dL (8.4-10.2); Carbon Dioxide 22 mmol/L (22-30); Chloride 98 mmol/L (98-107); Glucose 98 mg/dL (74-99); Non-African American GFR(CKD) >90 (>60 ml/min/1.73 sqM); Potassium 4.1 mmol/L (3.5-5.1); Total Bilirubin 0.9 mg/dL (0.2-1.3)
[2022-11-03 11:32] LABS: Appearance,Urine Clear (Clear); Bilirubin,Urine Negative (Negative); Blood,Urine Negative (Negative); Color,Urine Light Yellow; Glucose,Urine (UA) Negative (Negative); Ketones,Urine Negative (Negative); Leukocyte Esterase,Urine Negative (Negative); Nitrite,Urine Negative (Negative); Protein,Urine Negative (Negative); Specific Gravity,Urine 1.005 (1.001-1.035); Urobilinogen,Urine <2.0 mg/dL (<2.0)
[2022-11-03 11:50] LABS: AST 29 U/L (14-36); Alkaline Phosphatase 96 U/L (38-126); Sodium 133 mmol/L (137-145)
--- NOTE | 2022-11-03 12:16 | XR ---
EXAMINATION TYPE: XR chest 2V DATE OF EXAM: 11/03/2022 COMPARISON: None INDICATION: Fever TECHNIQUE: Frontal and lateral views of the chest are obtained. FINDINGS: The heart size is normal. The pulmonary vasculature is normal. The lungs are clear. IMPRESSION: 1. No acute pulmonary process.
[2022-11-03 13:42] LABS: Band Neutrophils % 2 %; Basophils # (M) 0.03 k/uL (0-0.2); Eosinophils # (M) 0.07 k/uL (0-0.7); Lymphocytes # (M) 1.45 k/uL (1.0-4.8); Monocytes # (M) 0.66 k/uL (0-1.0); Neutrophils % (M) 33 %; Nucleated Red Blood Cells 0 /100 WBC (0-0); Total Cells Counted 200
[2022-11-03] MEDS ORDERED: NALOXONE 0.4 MG/ML 1 ML VIAL IV PRN (18:20)
[2022-11-03] MEDS ORDERED: MORPHINE SULFATE 4 MG/ML SYRINGE IV PRN (18:20)
[2022-11-03] MEDS ORDERED: ACETAMINOPHEN TAB 325 MG TAB PO PRN (18:20)
[2022-11-03] MEDS ORDERED: CEFEPIME 2 GM in SODIUM CHLORIDE 0.9% 100 ML IVPB SCH (19:00)
[2022-11-03] MEDS ORDERED: CEFEPIME 2 GM in SODIUM CHLORIDE 0.9% 100 ML IVPB ONE (19:00)
[2022-11-03] MEDS ORDERED: ONDANSETRON 4 MG TAB PO PRN (21:03)
[2022-11-03] MEDS ORDERED: LOPERAMIDE 2 MG CAP PO PRN (21:03)
[2022-11-03] MEDS: ATORVASTATIN 20 MG TAB PO SCH (22:45)
[2022-11-03] MEDS: FLUCONAZOLE 100 MG TAB PO SCH (22:45)
[2022-11-03] MEDS: CHOLECALCIFEROL 25 MCG (1000 IU) TABLET PO SCH (22:45)
[2022-11-03] MEDS: ASPIRIN 81 MG PO SCH (22:45)
[2022-11-03] MEDS: MULTIVITAMINS, THERA 1 EACH TAB PO SCH (22:46)
[2022-11-04] MEDS: CEFEPIME 2 GM in SODIUM CHLORIDE 0.9% 100 ML IVPB SCH ×4 (00:59→23:36)
[2022-11-04] MEDS: LEVOTHYROXINE 100 MCG TAB PO SCH (06:23)
[2022-11-04] MEDS ORDERED: FLUCONAZOLE 100 MG TAB PO SCH (09:00)
[2022-11-04] MEDS: FLUCONAZOLE 100 MG TAB PO SCH (10:01)
--- NOTE | 2022-11-04 11:58 | HP ---
HISTORY AND PHYSICAL CHIEF COMPLAINT: Fever. HISTORY OF PRESENT ILLNESS: This is a 62-year-old woman with a past medical history of breast cancer, who was on chemotherapy, was complaining of fever up to 101 degrees. The patient came to [facility] and was admitted for further evaluation. The patient was started on empiric antibiotics. The patient also has neutropenia. White count is 3.3. There is no history of any headache, loss of consciousness, or seizures. PAST MEDICAL HISTORY: Reviewed. Includes breast cancer, receiving chemotherapy. Rest of the history and rest of the chart are also reviewed HOME MEDICATIONS: Synthroid. Doses and rest of medications are reviewed. ALLERGIES: Tetracycline. Reviewed. FAMILY HISTORY: No history of heart disease or strokes family. SOCIAL HISTORY: Previous smoker. REVIEW OF SYSTEMS: Fourteen-point review of systems negative except as mentioned earlier. PHYSICAL EXAMINATION: VITAL SIGNS: Pulse 85, blood pressure 99/60, respiration 18. HEENT: Conjunctivae normal. NECK: No jugular venous distention. CARDIOVASCULAR: S1, S2. RESPIRATIONS: Breath sounds diminished at the bases. No rhonchi. No crackles. ABDOMEN: Soft, nontender. LEGS: No edema. NERVOUS SYSTEM: No focal deficits. SKIN: No ulcer, rash, bleeding. JOINTS: No active deforming arthropathy. LABORATORY DATA: Reviewed. Chest x-ray reviewed personally. ASSESSMENT: 1. Neutropenic fever, status post chemotherapy. 2. History of breast cancer, on chemotherapy. 3. Hypothyroidism. 4. Hyperlipidemia. 5. Multiple medical issues. RECOMMENDATIONS: This is a 62-year-old woman who presented with multiple complex medical issues, we will monitor the patient closely. Recommended to continue with current medication, continue with symptomatic treatment and follow the cultures. Infectious disease evaluation. See orders. Further recommendations to follow. Prognosis is guarded. MMODL / IJN: [id number] /
[2022-11-04 13:09] LABS: HCT 35.8 % (34.0-46.0); HGB 11.6 gm/dL (11.4-16.0); MCH 30.8 pg (25.0-35.0); MCHC 32.5 g/dL (31.0-37.0); MCV 94.6 fL (80.0-100.0); Mean Platelet Volume 9.3; Platelet Count 227 k/uL (150-450); RBC 3.79 m/uL (3.80-5.40); RDW 15.2 % (11.5-15.5); WBC 7.8 k/uL (3.8-10.6)
[2022-11-04] MEDS ORDERED: MULTIVITAMINS, THERA 1 EACH TAB PO SCH (13:30)
[2022-11-04] MEDS ORDERED: ASPIRIN 81 MG PO SCH (13:30)
[2022-11-04] MEDS ORDERED: CHOLECALCIFEROL 25 MCG (1000 IU) TABLET PO SCH (13:30)
[2022-11-04] MEDS: CHOLECALCIFEROL 25 MCG (1000 IU) TABLET PO SCH (13:56)
[2022-11-04] MEDS: MULTIVITAMINS, THERA 1 EACH TAB PO SCH (13:57)
[2022-11-04] MEDS: ASPIRIN 81 MG PO SCH (13:57)
[2022-11-04 14:38] LABS: Band Neutrophils % 5 %; Eosinophils # (M) 0.08 k/uL (0-0.7); Lymphocytes # (M) 1.17 k/uL (1.0-4.8); Metamyelocytes # (M) 0.47 k/uL (0); Metamyelocytes % 6 %; Monocytes # (M) 1.25 k/uL (0-1.0); Myelocytes # (M) 0.16 k/uL (0); Myelocytes % 2 %; Neutrophils % (M) 57 %; Nucleated Red Blood Cells 0 /100 WBC (0-0); Total Cells Counted 200
--- NOTE | 2022-11-04 17:52 | P.CONS ---
History of Present Illness - Reason for Consult Consult date: 11/04/22 hx of breast cancer Requesting physician: Michell Grimm - Chief Complaint neutropenic fever - History of Present Illness Patient is a 62-year-old female with a significant history of breast cancer. She is a patient of Dr. Mcdonald. Biopsy of right breast lesion on 06/09/22 revealed Grade II invasive ductal carcinoma ER/RI 21-30%/0% [id number] +1 (Negative). Underwent right mastectomy, performed by Dr Curtis on 07/20/22 revealing 3.5 cm Grade III invasive ductal carcinoma, Margins negative, SLNB negative (0-4) and NSLNB negative (0-5). Completed 4 cycles on taxotere/cytoxan with neulasta on 10/28/22 Patient presented to the emergency room with fever. Patient reports she had a fever at home 101 2 days ago and then again yesterday prompting her to come to the emergency room for further evaluation. Patient also reports having severe diarrhea since her last chemotherapy treatment. On admission WBC 3.3, ANC 1.1, hemoglobin 12.2, platelets 211,000. UA negative for acute UTI. Chest x-ray negative for acute Cardiopulmonary processes. Influenza, Covid, RSV negative. Blood cultures pending. Patient has been afebrile since admission. Patient was started on cefepime. At today's visit patient reports feeling well. She reports diarrhea has resolved. Today WBC significantly improved, WBC 7.8, ANC 4.8. Review of Systems 10 point ROS is negative except as stated in the HPI Past Medical History Past Medical History: Cancer, Hyperlipidemia, Thyroid Disorder Additional Past Medical History / Comment(s): diverticulosis, new dx. breast cancer History of Any Multi-Drug Resistant Organisms: None Reported Past Surgical History: Adenoidectomy, Section, Cholecystectomy, Hysterectomy, Orthopedic Surgery, Tonsillectomy Additional Past Surgical History / Comment(s): Right knee repair. Ovarian cyst removed, C/Sx2. Right mastectomy with lymph node removal. Past Anesthesia/Blood Transfusion Reactions: Postoperative Nausea & Vomiting (PONV) Additional Past Anesthesia/Blood Transfusion Reaction / Comm: one time episode after surgery was nauseated Past Psychological History: No Psychological Hx Reported Smoking Status: Former smoker Past Alcohol Use History: None Reported Additional Past Alcohol Use History / Comment(s): quit smoking 2017, had quit on & off, 1ppd, smoked for 10 yrs. Past Drug Use History: None Reported Medications and Allergies Home Medications Medication Instructions Recorded Confirmed Type Aspirin [Adult Low Dose Aspirin EC] 81 mg PO PC-LUNCH 05/28/22 11/03/22 History Atorvastatin [Lipitor] 20 mg PO HS 05/28/22 11/03/22 History Cholecalciferol [Vitamin D3 (25 25 mcg PO PC-LUNCH 11/03/22 11/03/22 History Mcg = 1000 Iu)] Fluconazole [Diflucan] 100 mg PO DAILY 11/03/22 11/03/22 History Levothyroxine Sodium [Synthroid] 100 mcg PO DAILY 11/03/22 11/03/22 History Loperamide HCl [Imodium A-D] 2 - 4 mg PO QID PRN 11/03/22 11/03/22 History Multivitamins, Thera [Multivitamin 1 tab PO PC-LUNCH 11/03/22 11/03/22 History (formulary)] Ondansetron [Zofran] 4 mg PO Q4H PRN 11/03/22 11/03/22 History Allergies Allergy/AdvReac Type Severity Reaction Status Date / Time tetracycline Allergy Tongue Verified 11/03/22 15:03 Swelling levofloxacin [From Levaquin] AdvReac Nausea & Verified 11/03/22 15:03 Vomiting & Diarrhea Physical Exam Vitals: Vital Signs Temp Pulse Pulse Resp BP BP Pulse Ox 11/04/22 12:31 98.0 F 99 17 124/74 96 11/04/22 07:20 99.3 F 86 16 124/83 95 11/04/22 01:20 97.4 F L 85 18 99/64 94 L 11/03/22 21:00 98.2 F 97 20 132/81 95 11/03/22 20:21 98.8 F 93 16 118/67 97 Intake and Output 11/04/22 11/04/22 11/04/22 06:59 14:59 22:59 Intake Total 350 Balance 350 Intake: Oral 350 Other: Voiding Method Toilet # Voids 2 - Constitutional General appearance: average body habitus, no acute distress - EENT Eyes: anicteric sclerae, EOMI ENT: hearing grossly normal - Respiratory Respiratory: bilateral: CTA - Cardiovascular Rhythm: regular Heart sounds: normal: S1, S2 Abnormal Heart Sounds: no systolic murmur, no diastolic murmur, no rub, no S3 Gallop, no S4 Gallop, no click, no other - Gastrointestinal General gastrointestinal: soft, no tenderness - Integumentary Integumentary: no cyanotic, no rash - Neurologic Neurologic: CNII-XII intact - Musculoskeletal Musculoskeletal: strength equal bilaterally - Psychiatric Psychiatric: A&O x's 3, appropriate affect, intact judgment & insight Results CBC & Chem 7: 11/04/22 12:04 11/03/22 10:54 Labs: Abnormal Lab Results - Last 24 Hours (Table) 11/04/22 Range/Units 12:04 RBC 3.79 L (3.80-5.40) m/uL Monocytes # (Manual) 1.25 H (0-1.0) k/uL Metamyelocytes # (Man) 0.47 H (0) k/uL Myelocytes # (Manual) 0.16 H (0) k/uL Microbiology - Last 24 Hours (Table) 11/03/22 10:54 Blood Culture - Preliminary Blood 11/03/22 10:54 Blood Culture - Preliminary Blood Chest x-ray: report reviewed Assessment and Plan (1) Breast cancer Current Visit: Yes Status: Acute Priority: High Code(s): C50.919 - MALIGNANT NEOPLASM OF UNSP SITE OF UNSPECIFIED FEMALE BREAST SNOMED Code(s): 725743558 (2) Fever Current Visit: Yes Status: Acute Priority: High Code(s): R50.9 - FEVER, UNSPECIFIED SNOMED Code(s): 521886445 Plan: Breast cancer: -Biopsy of right breast lesion on 06/09/22 revealed Grade II invasive ductal carcinoma. Underwent right mastectomy, performed by Dr Curtis on 07/20/22 revealing 3.5 cm Grade III invasive ductal carcinoma. Completed 4 cycles on taxotere/cytoxan with neulasta on 10/28/22 -Clinic f/u scheduled with Dr Mcdonald in 2 weeks Neutropenic fever: -On admission WBC 3.3, ANC 1.1, hemoglobin 12.2, platelets 211,000. UA negative for acute UTI. Chest x-ray negative for acute Cardiopulmonary processes. Influenza, Covid, RSV negative. Blood cultures pending. Patient has been afe brile since admission. Patient continues on cefepime. -Today WBC significantly improved, WBC 7.8, ANC 4.8. attests: I have performed a H&P and developed impression and plan of care for patient, discussed with dictator. I agree with dictated note, documented as a scribe
[2022-11-04] MEDS: ATORVASTATIN 20 MG TAB PO SCH (20:03)
[2022-11-04] MEDS ORDERED: ATORVASTATIN 20 MG TAB PO SCH (21:00)
--- NOTE | 2022-11-04 22:43 | P.CONS ---
History of Present Illness - Reason for Consult Consult date: 11/04/22 - History of Present Illness Patient is a 62-year-old female with a past medical history difficult for breast cancer on chemotherapy patient mention she received her fourth dose of chemotherapy on 10/28/2022 patient presented to the ER yesterday morning for evaluation of fever x2 days the patient has reported temperature of 101 F at home be sent and patient be denies having any headache or URI symptoms no chest pain shortness of breath or cough some nausea but no vomiting abdominal pain has been complaining of significant diarrhea with multiple watery loose stool but no bloody mucus in the stool no urinary symptoms with the symptoms the patient has been evaluated on arrival to the ER patient was afebrile did have a low-grade fever of 99.3 degrees following this morning patient did have leukopenia however neutrophil count has been more than 500, patient did have normal kidney function levels in the normal urine has been negative influenza RSV and COVID testing was negative patient did have a chest x-ray no acute cardiopulmonary process patient has been empirically started on cefepime infectious disease was consulted for further management of antibiotic therapy stool studies has been requested but not collected patient did mention improvement in her symptoms after started on cefepime Past Medical History Past Medical History: Cancer, Hyperlipidemia, Thyroid Disorder Additional Past Medical History / Comment(s): diverticulosis, new dx. breast cancer History of Any Multi-Drug Resistant Organisms: None Reported Past Surgical History: Adenoidectomy, Section, Cholecystectomy, Hysterectomy, Orthopedic Surgery, Tonsillectomy Additional Past Surgical History / Comment(s): Right knee repair. Ovarian cyst removed, C/Sx2. Right mastectomy with lymph node removal. Past Anesthesia/Blood Transfusion Reactions: Postoperative Nausea & Vomiting (PONV) Additional Past Anesthesia/Blood Transfusion Reaction / Comm: one time episode after surgery was nauseated Past Psychological History: No Psychological Hx Reported Smoking Status: Former smoker Past Alcohol Use History: None Reported Additional Past Alcohol Use History / Comment(s): quit smoking 2017, had quit on & off, 1ppd, smoked for 10 yrs. Past Drug Use History: None Reported Medications and Allergies Home Medications Medication Instructions Recorded Confirmed Type Aspirin [Adult Low Dose Aspirin EC] 81 mg PO PC-LUNCH 05/28/22 11/03/22 History Atorvastatin [Lipitor] 20 mg PO HS 05/28/22 11/03/22 History Cholecalciferol [Vitamin D3 (25 25 mcg PO PC-LUNCH 11/03/22 11/03/22 History Mcg = 1000 Iu)] Fluconazole [Diflucan] 100 mg PO DAILY 11/03/22 11/03/22 History Levothyroxine Sodium [Synthroid] 100 mcg PO DAILY 11/03/22 11/03/22 History Loperamide HCl [Imodium A-D] 2 - 4 mg PO QID PRN 11/03/22 11/03/22 History Multivitamins, Thera [Multivitamin 1 tab PO PC-LUNCH 11/03/22 11/03/22 History (formulary)] Ondansetron [Zofran] 4 mg PO Q4H PRN 11/03/22 11/03/22 History Allergies Allergy/AdvReac Type Severity Reaction Status Date / Time tetracycline Allergy Tongue Verified 11/03/22 15:03 Swelling levofloxacin [From Levaquin] AdvReac Nausea & Verified 11/03/22 15:03 Vomiting & Diarrhea Physical Exam Vitals: Vital Signs Temp Pulse Pulse Resp BP BP Pulse Ox 11/04/22 12:31 98.0 F 99 17 124/74 96 11/04/22 07:20 99.3 F 86 16 124/83 95 11/04/22 01:20 97.4 F L 85 18 99/64 94 L 11/03/22 21:00 98.2 F 97 20 132/81 95 11/03/22 20:21 98.8 F 93 16 118/67 97 Intake and Output 11/04/22 11/04/22 11/04/22 06:59 14:59 22:59 Intake Total 350 Balance 350 Intake: Oral 350 Other: Voiding Method Toilet # Voids 2 Results CBC & Chem 7: 11/04/22 12:04 11/03/22 10:54 Labs: Abnormal Lab Results - Last 24 Hours (Table) 11/04/22 Range/Units 12:04 RBC 3.79 L (3.80-5.40) m/uL Monocytes # (Manual) 1.25 H (0-1.0) k/uL Metamyelocytes # (Man) 0.47 H (0) k/uL Myelocytes # (Manual) 0.16 H (0) k/uL Assessment and Plan Plan: 1patient presented hospital with a fever of 101 F at home x2 days in this patient currently undergoing chemotherapy for breast cancer patient did have mild leukopenia however the patient white count has subsequently normalized patient to have predominantly GI symptoms of diarrhea and reported improvement with the cefepime concern for possible bacterial gastroenteritis 2-we will request for the stool for C. difficile as well as stool culture 3-discontinue Lomotil 4-May continue cefepime in view of the clinical improvement and while waiting for the culture to finalize We will follow on clinical condition and cultures to further adjust medication if needed Thank you for this consultation we will follow the patient along with you Time with Patient: Greater than 30
[2022-11-05] MEDS: LEVOTHYROXINE 100 MCG TAB PO SCH (06:15)
[2022-11-05] MEDS: CEFEPIME 2 GM in SODIUM CHLORIDE 0.9% 100 ML IVPB SCH ×3 (08:31→23:52)
[2022-11-05] MEDS: FLUCONAZOLE 100 MG TAB PO SCH (08:31)
[2022-11-05 09:39] LABS: ALT 18 U/L (8-44); AST 18 U/L (13-35); Albumin 3.6 d/dL (3.8-4.9); Albumin/Globulin Ratio 1.64 Ratio (1.60-3.17); Alkaline Phosphatase 92 U/L (41-126); BUN/Creat Ratio 12.67 Ratio (12.00-20.00); Blood Urea Nitrogen 7.6 mg/dL (9.0-27.0); Calcium 8.8 mg/dL (8.7-10.3); Carbon Dioxide 23.8 mmol/L (21.6-31.8); Chloride 103 mmol/L (96-109); Globulin 2.2 d/dL (1.6-3.3); Glucose 110 mg/dL (70-110); Potassium 4.1 mmol/L (3.5-5.5); Sodium 138 mmol/L (135-145); Total Bilirubin <0.2 mg/dL (0.3-1.2); Total Protein 5.8 d/dL (6.2-8.2)
[2022-11-05 09:41] LABS: HCT 32.4 % (37.2-46.3); HGB 10.3 d/dL (12.0-15.0); MCH 30.3 pg (27.0-32.0); MCHC 31.8 d/dL (32.0-37.0); MCV 95.3 FL (80.0-97.0); Mean Platelet Volume 10.8 FL (9.5-12.2); NRBC Per 100 WBC 0.05 X 10*3/uL (0.00-0.01); Platelet Count 232 X 10*3/uL (140-440); RDW 15.9 % (11.5-14.5); WBC 12.82 X 10*3/uL (4.50-10.00)
[2022-11-05 10:17] LABS: Basophils # (M) 0.51 X 10*3/uL (0.00-0.10); Eosinophils # (M) 0 X 10*3/uL (0.04-0.35); Lymphocytes # (M) 1.92 X 10*3/uL (0.90-5.00); Metamyelocytes % 4 % (0-0); Monocytes # (M) 1.15 X 10*3/uL (0.20-1.00); Myelocytes % 4 % (0-0); Neutrophils # (M) 7.69 X 10*3/uL (1.80-7.70); Neutrophils % (M) 60 %; Promyelocytes # (M) 0.51 k/uL (0); Promyelocytes % 4 %; RBC Morphology Normal (Normal)
[2022-11-05] MEDS: ASPIRIN 81 MG PO SCH (12:54)
[2022-11-05] MEDS: CHOLECALCIFEROL 25 MCG (1000 IU) TABLET PO SCH (12:54)
[2022-11-05] MEDS: MULTIVITAMINS, THERA 1 EACH TAB PO SCH (12:54)
[2022-11-05] MEDS: ATORVASTATIN 20 MG TAB PO SCH (20:07)
--- NOTE | 2022-11-05 21:43 | P.PN ---
Subjective This is a pleasant 62 years old female with history of breast cancer status post right mastectomy status post recent chemotherapy on presents with fever documented at home at 101, patient was placed on antibiotic for neutropenic fever and currently she is on cefepime and Diflucan. Patient is doing well. No further evidence of feve in the hospital. Mild leukocytosis of 12,000. Patient probably can be discharged on oral antibiotics as she is doing well. Clinically she is improving as she tolerates that well and has good appetite, diarrhea improved and bowel movements will close to normal, with no nausea vomiting for 2 days however I discussed the case with oncology team evaluated the patient for now keep monitoring. Patient aware about her post discharge plan to follow up with Dr. BYERS oncologist in 2 weeks. Objective - Vital Signs Vital signs: Vital Signs Temp 97.8 F 11/05/22 11:31 Pulse 62 11/05/22 11:31 Resp 18 11/05/22 11:31 BP 162/77 11/05/22 11:31 Pulse Ox 96 11/05/22 11:31 FiO2 Intake & Output 11/04/22 11/05/22 11/05/22 18:59 06:59 18:59 Intake Total 690 Balance 690 Intake: Intake, IV Titration 100 Amount Cefepime 2 gm In Sodium 100 Chloride 0.9% 100 ml @ 25 mls/hr IVPB Q8HR [facility] Rx# :[id number] Oral 590 Other: Voiding Method Toilet Toilet Toilet # Voids 2 - Exam GENERAL: The patient is alert and oriented x3, not in any acute distress. Well developed, well nourished. HEENT: Pupils are round and equally reacting to light. EOMI. No scleral icterus. No conjunctival pallor. Normocephalic, atraumatic. No pharyngeal erythema. No thyromegaly. CARDIOVASCULAR: S1 and S2 present. No murmurs, rubs, or gallops. PULMONARY: Chest is clear to auscultation, no wheezing . no crackles. ABDOMEN: Soft, nontender, nondistended, normoactive bowel sounds. No palpable organomegaly. MUSCULOSKELETAL: No joint swelling or deformity. EXTREMITIES: No cyanosis, clubbing, or pedal edema. NEUROLOGICAL: Gross neurological examination did not reveal any focal deficits. SKIN: No rashes. no petechiae. - Labs CBC & Chem 7: 06/23/23 05:24 11/05/22 05:24 Labs: Abnormal Lab Results - Last 24 Hours (Table) 11/05/22 11/05/22 Range/Units 05:24 05:24 WBC 12.82 H (4.50-10.00) X 10*3/uL RBC 3.40 L (4.10-5.20) X 10*6/uL Hgb 10.3 L (12.0-15.0) d/dL Hct 32.4 L (37.2-46.3) % MCHC 31.8 L (32.0-37.0) d/dL RDW 15.9 H (11.5-14.5) % Monocytes # (Manual) 1.15 H (0.20-1.00) X 10*3/uL Eosinophils # (Manual) 0 L (0.04-0.35) X 10*3/uL Basophils # (Manual) 0.51 H (0.00-0.10) X 10*3/uL NRBC/100 WBC Diff 0.05 H (0.00-0.01) X 10*3/uL BUN 7.6 L (9.0-27.0) mg/dL Total Bilirubin <0.2 L (0.3-1.2) mg/dL C-Reactive Protein 12.10 H (0.00-0.80) mg/dL Total Protein 5.8 L (6.2-8.2) d/dL Albumin 3.6 L (3.8-4.9) d/dL Microbiology - Last 24 Hours (Table) 11/03/22 10:54 Blood Culture - Preliminary Blood 11/03/22 10:54 Blood Culture - Preliminary Blood Assessment and Plan Assessment: Neutropenic fever, improved on antibiotic Breast cancer status post breast mastectomy and chemotherapy on 10/28 Mild anemia Mild leukocytosis Plan: Continue with antibiotic as per ID team, cefepime and Diflucan, patient will be discharged on Ceftin and Flagyl per ID team went medically ready. Keep monitoring patient. Oncology team Labs and medication were reviewed.. Continue same treatment. Continue with symptomatic treatment. Resume home medication. Monitor labs and vitals. DVT and GI prophylaxis. Further recommendations as per clinical course of the patient DVT prophylaxis: Subcutaneous heparin GI Prophylaxis: Pepcid Prognosis is guarded
[2022-11-06] MEDS: LEVOTHYROXINE 100 MCG TAB PO SCH (05:46)
[2022-11-06] MEDS: FLUCONAZOLE 100 MG TAB PO SCH (08:26)
[2022-11-06] MEDS: CEFEPIME 2 GM in SODIUM CHLORIDE 0.9% 100 ML IVPB SCH (08:26)
--- NOTE | 2022-11-06 09:16 | P.PN ---
Subjective Progress Note Date: 11/05/22 Principal diagnosis: fever At today's visit patient is resting comfortably in bed. She reports feeling well and resolution of symptoms. Patient afebrile. No other reported com plaints at this time Objective - Vital Signs Vital signs: Vital Signs Temp 98.6 F 11/05/22 18:54 Pulse 89 11/05/22 18:54 Resp 18 11/05/22 18:54 BP 120/75 11/05/22 18:54 Pulse Ox 97 11/05/22 18:54 FiO2 Intake & Output 11/05/22 11/05/22 11/06/22 06:59 18:59 06:59 Intake Total 690 Balance 690 Intake: Intake, IV Titration 100 Amount Cefepime 2 gm In Sodium 100 Chloride 0.9% 100 ml @ 25 mls/hr IVPB Q8HR [facility] Rx# :[id number] Oral 590 Other: Voiding Method Toilet Toilet # Voids 2 2 - Constitutional General appearance: Present: average body habitus, no acute distress - EENT Eyes: Present: anicteric sclerae, EOMI ENT: Present: hearing grossly normal - Respiratory Details: breathing even and unlabored - Cardiovascular Details: skin warm and dry - Integumentary Integumentary: Present: normal - Neurologic Neurologic: Present: CNII-XII intact - Musculoskeletal Musculoskeletal: Present: strength equal bilaterally - Psychiatric Psychiatric: Present: A&O x's 3, appropriate affect, intact judgment & insight - Labs CBC & Chem 7: 11/05/22 05:24 11/05/22 05:24 Labs: Abnormal Lab Results - Last 24 Hours (Table) 11/05/22 11/05/22 Range/Units 05:24 05:24 WBC 12.82 H (4.50-10.00) X 10*3/uL RBC 3.40 L (4.10-5.20) X 10*6/uL Hgb 10.3 L (12.0-15.0) d/dL Hct 32.4 L (37.2-46.3) % MCHC 31.8 L (32.0-37.0) d/dL RDW 15.9 H (11.5-14.5) % Monocytes # (Manual) 1.15 H (0.20-1.00) X 10*3/uL Eosinophils # (Manual) 0 L (0.04-0.35) X 10*3/uL Basophils # (Manual) 0.51 H (0.00-0.10) X 10*3/uL NRBC/100 WBC Diff 0.05 H (0.00-0.01) X 10*3/uL BUN 7.6 L (9.0-27.0) mg/dL Total Bilirubin <0.2 L (0.3-1.2) mg/dL C-Reactive Protein 12.10 H (0.00-0.80) mg/dL Total Protein 5.8 L (6.2-8.2) d/dL Albumin 3.6 L (3.8-4.9) d/dL Microbiology - Last 24 Hours (Table) 11/03/22 10:54 Blood Culture - Preliminary Blood 11/03/22 10:54 Blood Culture - Preliminary Blood Assessment and Plan (1) Breast cancer Current Visit: Yes Status: Acute Priority: High Code(s): C50.919 - MALIGNANT NEOPLASM OF UNSP SITE OF UNSPECIFIED FEMALE BREAST SNOMED Code(s): 639459279 (2) Fever Current Visit: Yes Status: Acute Priority: High Code(s): R50.9 - FEVER, UNSPECIFIED SNOMED Code(s): 106320875 Plan: Breast cancer: -Biopsy of right breast lesion on 06/09/22 revealed Grade II invasive ductal carcinoma. Underwent right mastectomy, performed by Dr Curtis on 07/20/22 revealing 3.5 cm Grade III invasive ductal carcinoma. Completed 4 cycles of taxotere/cytoxan with neulasta on 10/28/22 -Clinic f/u scheduled with Dr Mcdonald in 2 weeks Neutropenic fever: -On admission WBC 3.3, ANC 1.1, hemoglobin 12.2, platelets 211,000. UA negative for acute UTI. Chest x-ray negative for acute Cardiopulmonary processes. Influenza, Covid, RSV negative. Blood cultures negative thus far. Patient has been afebrile since admission. Continues on cefepime. -WBC significantly improved, WBC 12.8, ANC 4.8. -Spoke with IM team. If blood cultures are negative at 48 hours and pt continues to be afebrile she is cleared for discharge from a hem/onc standpoint Dr. attests: I have performed a H&P and developed impression and plan of care for patient, discussed with dictator. I agree with dictated note, documented as a scribe
[2022-11-06 10:34] VITALS: BP 111/71; PULSE 83; RESP 16; TEMP 98.5
[2022-11-06 13:36] LABS: HCT 34.2 % (37.2-46.3); HGB 10.5 d/dL (12.0-15.0); MCHC 30.7 d/dL (32.0-37.0); MCV 97.7 FL (80.0-97.0); Mean Platelet Volume 10.7 FL (9.5-12.2); NRBC Per 100 WBC 0.05 X 10*3/uL (0.00-0.01); Platelet Count 270 X 10*3/uL (140-440); RDW 15.9 % (11.5-14.5); WBC 19.82 X 10*3/uL (4.50-10.00)
[2022-11-06] MEDS: ASPIRIN 81 MG PO SCH (14:26)
[2022-11-06] MEDS: CHOLECALCIFEROL 25 MCG (1000 IU) TABLET PO SCH (14:26)
[2022-11-06] MEDS: MULTIVITAMINS, THERA 1 EACH TAB PO SCH (14:26)
[2022-11-06 14:57] LABS: Basophils # (M) 0 X 10*3/uL (0.00-0.10)
[2022-11-06 15:19] LABS: Lymphocytes # (M) 1.78 X 10*3/uL (0.90-5.00); Metamyelocytes % 6 % (0-0); Monocytes # (M) 0.99 X 10*3/uL (0.20-1.00); Myelocytes % 2 % (0-0); Neutrophils # (M) 14.67 X 10*3/uL (1.80-7.70); Neutrophils % (M) 74 %; Promyelocytes # (M) 0.59 k/uL (0); Promyelocytes % 3 %; RBC Morphology Normal (Normal)
--- NOTE | 2022-11-07 00:03 | P.DS ---
Providers Date of admission: 11/03/22 18:20 Attending physician: Rio Mane Consults: 11/03/22 18:20 Consult Physician Routine Consulting Provider: Rick Leroy Consult Reason/Comments: fever Do you want consulting provider notified?: Yes, Notify in am 11/04/22 13:54 Consult Physician Routine Consulting Provider: Martín Jordan Consult Reason/Comments: fever, neutropenic Do you want consulting provider notified?: Yes Primary care physician: Jesús Dewitt Hospital Course: Diagnoses Neutropenic fever, improved on antibiotic Breast cancer status post breast mastectomy and chemotherapy on 10/28 Mild anemia Mild leukocytosis, multifactorial secondary to her infection and Neulasta she took after chemotherapy as she confirms Hospital course: This is a pleasant 62 years old female with history of breast cancer status post right mastectomy status post recent chemotherapy on presents with fever documented at home at 101, patient was placed on antibiotic for neutropenic fever and currently she is on cefepime and Diflucan. Patient is doing well. No further evidence of feve in the hospital. Mild leukocytosis of 12,000. Patient probably can be discharged on oral antibiotics as she is doing well. Clinically she is improving as she tolerates that well and has good appetite, diarrhea improved and bowel movements will close to normal, with no nausea vomiting for 2 days however I discussed the case with oncology team evaluated the patient for now keep monitoring. Patient aware about her post discharge plan to follow up with Dr. Leroy oncologist in 2 weeks. Patient agrees and she is telling me she already has appointment with Dr. Leroy in 2 weeks. Patient also has mild leukocytosis, she told me this is secondary to Neulasta she took after plus chemotherapy. She states previously she also took Neulasta and her white cell count went up to 16,000 in about one week before it came back to reference level. I discussed the case with infectious disease team. Her for discharge, discharge antibiotics prior to team, please refer to discharge instructions Hematology/oncology team also cleared The patient for discharge Patient denies any other new symptoms and she is eager to go home today Problems and management plan were discussed with the patient and he verbalized understanding and acceptance Patient was found stable and can be discharged home in guarded prognosis however he needs follow-up as an outpatient. Patient was instructed to follow up with PCP Dr. Aguayo within one week and patient agrees Follow-up with oncology as above Physical exam Gen: patient is a AAOx3, no distress CVS: S1-S2, RRR, no murmur Lungs: B/L CTA, no wheezing Abdomen: soft, no distention, no tenderness, positive bowel sounds Extremity: no leg edema or induration Time spent more than 35 minutes Patient Condition at Discharge: Stable Plan - Discharge Summary Discharge Rx Participant: No New Discharge Prescriptions: New cefUROXime axetiL [Ceftin] 500 mg PO BID 7 Days #14 tab metroNIDAZOLE [Flagyl] 500 mg PO TID 7 Days #21 tab Continue Multivitamins, Thera [Multivitamin (formulary)] 1 tab PO PC-LUNCH Cholecalciferol [Vitamin D3 (25 Mcg = 1000 Iu)] 25 mcg PO PC-LUNCH Ondansetron [Zofran] 4 mg PO Q4H PRN PRN Reason: Nausea Atorvastatin [Lipitor] 20 mg PO HS Aspirin [Adult Low Dose Aspirin EC] 81 mg PO PC-LUNCH Levothyroxine Sodium [Synthroid] 100 mcg PO DAILY Fluconazole [Diflucan] 100 mg PO DAILY Loperamide HCl [Imodium A-D] 2 - 4 mg PO QID PRN PRN Reason: Diarrhea Discharge Medication List Aspirin [Adult Low Dose Aspirin EC] 81 mg PO PC-LUNCH 05/28/22 [History] Atorvastatin [Lipitor] 20 mg PO HS 05/28/22 [History] Cholecalciferol [Vitamin D3 (25 Mcg = 1000 Iu)] 25 mcg PO PC-LUNCH 11/03/22 [History] Fluconazole [Diflucan] 100 mg PO DAILY 11/03/22 [History] Levothyroxine Sodium [Synthroid] 100 mcg PO DAILY 11/03/22 [History] Loperamide HCl [Imodium A-D] 2 - 4 mg PO QID PRN 11/03/22 [History] Multivitamins, Thera [Multivitamin (formulary)] 1 tab PO PC-LUNCH 11/03/22 [History] Ondansetron [Zofran] 4 mg PO Q4H PRN 11/03/22 [History] cefUROXime axetiL [Ceftin] 500 mg PO BID 7 Days #14 tab 11/05/22 [Rx] metroNIDAZOLE [Flagyl] 500 mg PO TID 7 Days #21 tab 06/23/23 [Rx] Follow up Appointment(s)/Referral(s): Jesús Dewitt MD [Primary Care Provider] - 1-2 days (we recommend to check your white cell count with your doctor ) Rick Leroy MD [STAFF PHYSICIAN] - 2 Weeks Martín Jordan MD [STAFF PHYSICIAN] - 1 Week Patient Instructions/Handouts: Cefuroxime (By mouth), Metronidazole (By mouth), Neutropenia (DC) Activity/Diet/Wound Care/Special Instructions: heart healthy diet activity is restricted till you see your doctor we recommend to check your white cell count with your doctor Discharge Disposition: HOME SELF-CARE
== END 2022-11-06 16:19 | disposition home or self-care (01) | DRG 810 ==
LOC: EC 09:32 → 5NMEDONC 18:20
PROVIDERS: ADMIT Hospitalist; ATTEND Hospitalist
DX: D70.1 Agranulocytosis secondary to cancer chemotherapy (principal); C50.919 Malignant neoplasm of unspecified site of unspecified female breast; E03.9 Hypothyroidism, unspecified; E78.5 Hyperlipidemia, unspecified; T45.8X5A Adverse effect of other primarily systemic and hematological agents, initial encounter; Z20.822 Contact with and (suspected) exposure to COVID-19; R50.81 Fever presenting with conditions classified elsewhere; T45.1X5A Adverse effect of antineoplastic and immunosuppressive drugs, initial encounter; Z79.82 Long term (current) use of aspirin; Z79.890 Hormone replacement therapy; Z79.899 Other long term (current) drug therapy; Z90.11 Acquired absence of right breast and nipple; Z90.710 Acquired absence of both cervix and uterus; Z92.21 Personal history of antineoplastic chemotherapy; Z87.891 Personal history of nicotine dependence
CPT/HCPCS: 36415; 71046; 80053; 81003; 83605; 85025; 86140; 87040; 87045; 87046; 87636; 96365; 99285

== ENCOUNTER → 2022-12-08 | Outpatient (CLI) | payer BC ==
[2022-12-08 09:53] VITALS: BP 135/78; PULSE 50; RESP 13; TEMP 98.4
--- NOTE | 2022-12-08 10:15 | P.PN ---
Subjective Progress Note Date: 12/08/22 Principal diagnosis: right breast [id number]+Her2- invasive ductal cancer mastectomy 07-20-22 right breast invasive ductal cancer; [id number]-Her2-G2 Cora is a 61 year old white female seen in consultation for Dr. Dewitt regarding a mass in the right breast. She had a bilateral mammogram in September after which she was recommended to have a repeat right breast mammogram in 6 months. Most recently she noted a lump in her right breast May 19 and had a right breast mammogram and ultrasound performed revealing a lesion in the right breast which had changed from the September evaluation. She does not feel any other lumps masses or nodules of concern in either breast. She has not had any trauma to her breast. She is not complaining of any nipple discharge or skin changes. She's never had any surgery on her breast. The ultrasound revealed a 3.4 x 3.3 cm hypoechoic vascular mass at 11:00 There was also an adjacent prominent low axillary tail lymph node with cortical thickening up to 3.3 mm no other axillary lymphadenopathy On 06-09-22 a core biopsy of the mass in the right breast and lymph node were done. The mass was invasive ductal cancer G2, ER+DE-Her2-. The lymph node biopsy was benign. An axillary ultrasound was done on 06-16-22 which did not show any adenopathy of concern. Note 11-26-22 Dr. Mcdonald medical oncology reviewed Genetic testing declined at this time. The patient had a right mastectomy and SNB preformed on 07-20-22 The patient has declined seeing a plastic surgeon and is not interested in reconstruction at this time She is not complaining of any lumps masses or nodules on her chest wall or in her left breast. She was recommended to have any radiation therapy Her oncotype was 65; she completed four cycles of Taxotere/Cytoxin and was hosptialized after the last cycle with neutropenic fever; is completed chemotherapy. She is presently on letrazole for the past week . She is not complaining of any side effects. Patient does have asymmetry secondary to her right mastectomy. She notes that it is difficult to find close to fit well. And she is listing to the side of her left breast. She wears a DD bra for the left . Caffeine: 2 cups/day nicotine: stopped 2018 smoked for 10 years; 1/PPD chocolate: rare BCP: early s for treatment of ovarian cyst Hormones: Negative Family History: mother: colon cancer father: lung cancer smoker maternal grandmother: colon cancer Patient had a colonoscopy 2021; to have it repeated in 2024 Hormonal History: menarche: 14 , breast fed: yes; age at first : 20 menopause: hysterectomy at 34; ? age at menopause done for endometriosis Surgical History: hysgterectomy tonsil/addenoid 2 ovarian surgeries right knee gallbladder 2 C-sections Medical History: hypothyroid hyperlipedemia diverticulosis Social History: nicotine: stopped 2018; as above alcohol: none drugs: none - Constitutional Constitutional: Denies chills, Denies fever - EENT Eyes: denies blurred vision, denies pain Ears: deny: decreased hearing, tinnitus Ears, nose, mouth and throat: Denies headache, Denies sore throat - Breasts Breasts: bilateral: as per HPI - Cardiovascular Cardiovascular: Denies chest pain, Denies shortness of breath - Respiratory Respiratory: Denies cough - Gastrointestinal Gastrointestinal: Reports constipation, Reports diarrhea, Denies abdominal pain, Denies nausea, Denies vomiting - Genitourinary (Female) Genitourinary: Denies dysuria, Denies hematuria - Menstruation Menstruation: Reports postmenopausal - Musculoskeletal Musculoskeletal: Denies myalgias - Integumentary Integumentary: Denies pruritus, Denies rash - Neurological Neurological: Denies numbness, Denies weakness - Psychiatric Psychiatric: Denies anxiety, Denies depression - Endocrine Comment: hypothyroid - Hematologic/Lymphatic Comment: none - Allergic/Immunologic Comment: baby aspirin Allergic/Immunologic: Reports seasonal allergies Past Medical History Past Medical History: Hyperlipidemia, Thyroid Disorder Additional Past Medical History / Comment(s): diverticulosis History of Any Multi-Drug Resistant Organisms: None Reported Past Surgical History: Adenoidectomy, Section, Cholecystectomy, Hysterectomy, Orthopedic Surgery, Tonsillectomy Additional Past Surgical History / Comment(s): Right knee repair. Ovarian cyst removel. Past Anesthesia/Blood Transfusion Reactions: No Reported Reaction Past Psychological History: No Psychological Hx Reported Smoking Status: Former smoker Past Alcohol Use History: None Reported Additional Past Alcohol Use History / Comment(s): quit smoking 2017 Past Drug Use History: None Reported Medications and Allergies Home Medications Medication Instructions Recorded Confirmed Type Aspirin [Adult Low Dose Aspirin EC] 81 mg PO DAILY 05/28/22 05/28/22 History Atorvastatin [Lipitor] 20 mg PO DAILY 05/28/22 05/28/22 History Cholecalciferol [Vitamin D3 (10 10 mcg PO DAILY 05/28/22 05/28/22 History Mcg = 400 Iu)] Levothyroxine Sodium [Levoxyl] 125 mcg PO DAILY 05/28/22 05/28/22 History Multivitamin [Multivitamins Adult 1 tab PO DAILY 05/28/22 05/28/22 History Gummies] Allergies Allergy/AdvReac Type Severity Reaction Status Date / Time tetracycline Allergy Swelling Verified 05/28/22 12:57 levofloxacin [From Levaquin] AdvReac Nausea & Verified 05/28/22 12:57 Vomiting & Diarrhea Objective - Vital Signs Vital signs: Vital Signs Temp 98.4 F 12/08/22 09:49 Pulse 50 L 12/08/22 09:49 Resp 13 12/08/22 09:49 BP 135/78 12/08/22 09:49 Pulse Ox 99 12/08/22 09:49 FiO2 Intake & Output 12/07/22 12/08/22 12/08/22 18:59 06:59 18:59 Weight 90.718 kg - Constitutional General appearance: Present: cooperative - EENT Eyes: Present: EOMI ENT: Present: hearing grossly normal - Neck Neck: Present: normal ROM - Respiratory Respiratory: bilateral: CTA - Cardiovascular Rhythm: regular Heart sounds: normal: S1, S2 - Integumentary Integumentary: Present: normal turgor - Musculoskeletal Musculoskeletal: Present: gait normal - Psychiatric Psychiatric: Present: A&O x's 3, appropriate affect, intact judgment & insight - Additional findings Additional findings: Breast Exam: BRA: 42DD Inspection: right breast grade 3 ptosis palpation: right chest wall: Chest wall no dominant masses or nodules of concern, well- healed scar Right axilla: No adenopathy of concern Left breast: Multi-positional exam fibrocystic changes no dominant masses or nodules of concern Left axilla: No adenopathy of concern Assessment and Plan Assessment: Impression: hypothyroid hyperlipedemia diverticulosis right breast [id number]-Her2-G2 ductal carcinoma Plan: Status post right mastectomy Macromastia left breast symptomatic Consider left breast reduction we'll discuss this again at her next visit Left breast mammogram May 2023 CC: Dr. Dewitt
== END ==
LOC: WWCWWP 09:28
PROVIDERS: ATTEND Surgery
DX: D05.11 Intraductal carcinoma in situ of right breast (principal); E03.9 Hypothyroidism, unspecified; E78.5 Hyperlipidemia, unspecified; K57.90 Diverticulosis of intestine, part unspecified, without perforation or abscess without bleeding; Z79.890 Hormone replacement therapy; Z88.8 Allergy status to other drugs, medicaments and biological substances; Z17.0 Estrogen receptor positive status [ER+]; Z87.891 Personal history of nicotine dependence; Z88.1 Allergy status to other antibiotic agents

== ENCOUNTER → 2023-04-05 | Outpatient (CLI) | payer BC ==
--- NOTE | 2023-04-05 09:29 | MM ---
Reason for Exam: Follow-up at short interval from prior study. Last screening mammogram was performed 10 month(s) ago. Patient History: Menarche at age 14. First Full-Term at age 20. Hysterectomy at age 34. Postmenopausal. Patient has history of breast feeding. Breast cancer, right, age 61. Previous chest radiation therapy at age 62. Previous chemotherapy at age 62. 07/20/2022, Mastectomy on the Right side. 06/09/2022, Malignant US biopsy breast VAD RT on the right side. 06/09/2022, US breast needle core RT on the Right side. Prior Study Comparison: 10/07/2021 Bilateral MG 3D screening mammo w/cad, [facility]. 05/27/2022 Bilateral MG 3D diag mammo w/cad [facility], [facility]. 06/09/2022 Right MG diagnostic mammo RT wo CAD, [facility]. Tissue Density: Left: There are scattered fibroglandular densities. Findings: Analyzed By CAD. Fibroglandular tissue without evidence of mass. No new suspicious masses, calcifications or distortions. Overall Assessment: Benign, BI-RAD 2 Management: Screening Mammogram of the left breast in 6 months. Results were given to the patient verbally at the time of exam. Patient should continue monthly self-breast exams. A clinical breast exam by your physician is recommended on an annual basis. This exam should not preclude additional follow-up of suspicious palpable abnormalities. Note on Blanche scores and lifetime risk: 1. A Blanche score greater than 3% is considered moderate risk. If this is the case, consider specialist referral to assess eligibility for a risk reducing agent. 2. If overall lifetime risk for the development of breast cancer is 20% or higher, the patient may qualify for future screening with alternating mammogram and breast MRI. Electronically signed and approved by: Loyd Mcdowell DO
== END | disposition home or self-care (01) ==
LOC: RADMAMWWP 08:35
PROVIDERS: ATTEND Surgery
DX: R92.322 Mammographic fibroglandular density, left breast (principal); Z85.3 Personal history of malignant neoplasm of breast; Z78.0 Asymptomatic menopausal state
CPT/HCPCS: 77061; 77065

== ENCOUNTER → 2023-04-15 | Outpatient (CLI) | payer BC ==
--- NOTE | 2023-04-15 13:41 | P.PN ---
Subjective Progress Note Date: 04/15/23 Principal diagnosis: Right breast T2 N0 M0 ER positive UT positive HER-2/sotero negative invasive ductal carcinoma/mastectomy 3723 right breast [id number]+Her2-G2 invasive ductal cancer mastectomy 07-20-22 Cora is a 61 year old white female seen in consultation for Dr. Dewitt regarding a mass in the right breast. She had a bilateral mammogram in September 2021 after which she was recommended to have a repeat right breast mammogram in 6 months. Most recently she noted a lump in her right breast May 19 and had a right breast mammogram and ultrasound performed revealing a lesion in the right breast which had changed from the September evaluation. She does not feel any other lumps masses or nodules of concern in either breast. She has not had any trauma to her breast. She is not complaining of any nipple discharge or skin changes. She's never had any surgery on her breast. The ultrasound revealed a 3.4 x 3.3 cm hypoechoic vascular mass at 11:00 There was also an adjacent prominent low axillary tail lymph node with cortical thickening up to 3.3 mm no other axillary lymphadenopathy On 06-09-22 a core biopsy of the mass in the right breast and lymph node were done. The mass was invasive ductal cancer G2, ER+UT-Her2-. The lymph node biopsy was benign. An axillary ultrasound was done on 06-16-22 which did not show any adenopathy of concern. Note 11-26-22 Dr. Rangel medical oncology reviewed Genetic testing declined at this time. The patient had a right mastectomy and SNB preformed on 07-20-22 The patient has declined seeing a plastic surgeon and is not interested in reconstruction at this time She is not complaining of any lumps masses or nodules on her chest wall or in her left breast. She was not recommended to have any radiation therapy Her oncotype was 65; she completed four cycles of Taxotere/Cytoxin and was hosptialized after the last cycle with neutropenic fever; has completed chemotherapy. She is presently on letrazol . She is not complaining of any side effects. Patient does have asymmetry secondary to her right mastectomy. She notes that it is difficult to find clothes to fit well. And she is listing to the side of her left breast. She wears a DD bra for the left . She left breast mammogram on 1120 123 which was benign BIRADS 2 Caffeine: 2 cups/day nicotine: stopped 2018 smoked for 10 years; 1/PPD chocolate: rare BCP: early 20s for treatment of ovarian cyst Hormones: Negative Family History: mother: colon cancer father: lung cancer smoker maternal grandmother: colon cancer Patient had a colonoscopy 2021; to have it repeated in 2024 Hormonal History: menarche: 14 , breast fed: yes; age at first : 20 menopause: hysterectomy at 34; ? age at menopause done for endometriosis Surgical History: hysgterectomy tonsil/addenoid 2 ovarian surgeries right knee gallbladder 2 C-sections Medical History: hypothyroid hyperlipedemia diverticulosis Social History: nicotine: stopped 2018; as above alcohol: none drugs: none - Constitutional Constitutional: Denies chills, Denies fever - EENT Eyes: denies blurred vision, denies pain Ears: deny: decreased hearing, tinnitus Ears, nose, mouth and throat: Denies headache, Denies sore throat - Breasts Breasts: bilateral: as per HPI - Cardiovascular Cardiovascular: Denies chest pain, Denies shortness of breath - Respiratory Respiratory: Denies cough - Gastrointestinal Gastrointestinal: Reports constipation, Reports diarrhea, Denies abdominal pain, Denies nausea, Denies vomiting - Genitourinary (Female) Genitourinary: Denies dysuria, Denies hematuria - Menstruation Menstruation: Reports postmenopausal - Musculoskeletal Musculoskeletal: Denies myalgias - Integumentary Integumentary: Denies pruritus, Denies rash - Neurological Neurological: Denies numbness, Denies weakness - Psychiatric Psychiatric: Denies anxiety, Denies depression - Endocrine Comment: hypothyroid - Hematologic/Lymphatic Comment: none - Allergic/Immunologic Comment: baby aspirin Allergic/Immunologic: Reports seasonal allergies Past Medical History Past Medical History: Hyperlipidemia, Thyroid Disorder Additional Past Medical History / Comment(s): diverticulosis History of Any Multi-Drug Resistant Organisms: None Reported Past Surgical History: Adenoidectomy, Section, Cholecystectomy, Hysterectomy, Orthopedic Surgery, Tonsillectomy Additional Past Surgical History / Comment(s): Right knee repair. Ovarian cyst removel. Past Anesthesia/Blood Transfusion Reactions: No Reported Reaction Past Psychological History: No Psychological Hx Reported Smoking Status: Former smoker Past Alcohol Use History: None Reported Additional Past Alcohol Use History / Comment(s): quit smoking 2017 Past Drug Use History: None Reported Medications and Allergies Home Medications Medication Instructions Recorded Confirmed Type Aspirin [Adult Low Dose Aspirin EC] 81 mg PO DAILY 05/28/22 05/28/22 History Atorvastatin [Lipitor] 20 mg PO DAILY 05/28/22 05/28/22 History Cholecalciferol [Vitamin D3 (10 10 mcg PO DAILY 05/28/22 05/28/22 History Mcg = 400 Iu)] Levothyroxine Sodium [Levoxyl] 125 mcg PO DAILY 05/28/22 05/28/22 History Multivitamin [Multivitamins Adult 1 tab PO DAILY 05/28/22 05/28/22 History Gummies] Allergies Allergy/AdvReac Type Severity Reaction Status Date / Time tetracycline Allergy Swelling Verified 05/28/22 12:57 levofloxacin [From Levaquin] AdvReac Nausea & Verified 05/28/22 12:57 Vomiting & Diarrhea Objective - Constitutional General appearance: Present: cooperative - EENT Eyes: Present: EOMI ENT: Present: hearing grossly normal - Neck Neck: Present: normal ROM - Respiratory Respiratory: bilateral: CTA - Cardiovascular Rhythm: regular Heart sounds: normal: S1, S2 - Integumentary Integumentary: Present: normal turgor - Musculoskeletal Musculoskeletal: Present: gait normal - Psychiatric Psychiatric: Present: A&O x's 3, appropriate affect, intact judgment & insight - Additional findings Additional findings: Breast Exam: BRA: 42DD Inspection: right breast grade 3 ptosis palpation: right chest wall: Chest wall no dominant masses or nodules of concern, well- healed scar Right axilla: No adenopathy of concern Left breast: Multi-positional exam fibrocystic changes no dominant masses or nodules of concern Left axilla: No adenopathy of concern Assessment and Plan Assessment: Impression: hypothyroid hyperlipedemia diverticulosis right breast [id number]-[id number]-G2 ductal carcinoma Plan: Status post right mastectomy Macromastia left breast symptomatic, at this time she does not want any surgery for the left breast and her asymmetry Left breast mammogram in 1 year Follow-up examination in 6 months Continue letrazole CC: Dr. Dewitt
== END ==
LOC: WWCWWP 13:06
PROVIDERS: ATTEND Surgery
DX: C50.911 Malignant neoplasm of unspecified site of right female breast (principal); E03.9 Hypothyroidism, unspecified; E78.5 Hyperlipidemia, unspecified; Z17.0 Estrogen receptor positive status [ER+]; Z79.890 Hormone replacement therapy; Z88.1 Allergy status to other antibiotic agents; Z87.891 Personal history of nicotine dependence; Z87.19 Personal history of other diseases of the digestive system

== ENCOUNTER → 2023-10-28 | Outpatient (CLI) | payer BC ==
--- NOTE | 2023-10-28 10:06 | P.PN ---
Subjective Progress Note Date: 10/28/23 Principal diagnosis: right breast [id number]+Her2-G2 invasive ductal cancer mastectomy 07-20-22 10-28-23 Principal diagnosis: Right breast T2 N0 M0 ER positive [address] positive HER-2/sotero negative invasive ductal carcinoma/mastectomy 3723 right breast [id number]+Pr+Her2-G2 invasive ductal cancer mastectomy 07-20-22 Cora is a 63 year old white female seen in consultation for Dr. Dewitt regarding a mass in the right breast. She had a bilateral mammogram in September 2021 after which she was recommended to have a repeat right breast mammogram in 6 months. Most recently she noted a lump in her right breast May 19 and had a right breast mammogram and ultrasound performed revealing a lesion in the right breast which had changed from the September evaluation. She did not feel any other lumps masses or nodules of concern in either breast. She had not had any trauma to her breast. She was not complaining of any nipple discharge or skin changes. She had never had any surgery on her breast. The ultrasound revealed a 3.4 x 3.3 cm hypoechoic vascular mass at 11:00 There was also an adjacent prominent low axillary tail lymph node with cortical thickening up to 3.3 mm no other axillary lymphadenopathy On 06-09-22 a core biopsy of the mass in the right breast and lymph node were done. The mass was invasive ductal cancer G2, ER+CT-Her2-. The lymph node biopsy was benign. An axillary ultrasound was done on 06-16-22 which did not show any adenopathy of concern. Note 11-26-22 Dr. Rangel medical oncology reviewed Genetic testing declined at this time. The patient had a right mastectomy and SNB preformed on 07-20-22 The patient has declined seeing a plastic surgeon and is not interested in reconstruction at this time She is not complaining of any lumps masses or nodules on her chest wall or in her left breast. She was not recommended to have any radiation therapy Her oncotype was 65; she completed four cycles of Taxotere/Cytoxin and was hosptialized after the last cycle with neutropenic fever; has completed chemotherapy. She is presently on letrazol . She is not complaining of any side effects. Patient does have asymmetry secondary to her right mastectomy. She notes that it is difficult to find clothes to fit well. And she is listing to the side of her left breast. She wears a DD bra for the left . She left breast mammogram on 1119 which was benign BIRADS 2 note medical oncology 06-29-[address] Mcdonald; continue femora She is not complaining of any new lumps masses or nodules of concern in her chest wall or in her left breast. She is tolerating the Femara without difficulty. She is dealing with a porlapsed bladder and is doing physical therapy, she also complains of worse arthirtis in her right knee Caffeine: 2 cups/day nicotine: stopped 2018 smoked for 10 years; 1/PPD chocolate: rare BCP: early for treatment of ovarian cyst Hormones: Negative Family History: mother: colon cancer father: lung cancer smoker maternal grandmother: colon cancer Patient had a colonoscopy 2021; to have it repeated in 2024 Hormonal History: menarche: 14 , breast fed: yes; age at first : 20 menopause: hysterectomy at 34; ? age at menopause done for endometriosis Surgical History: hysgterectomy tonsil/addenoid 2 ovarian surgeries right knee gallbladder 2 C-sections Medical History: hypothyroid hyperlipedemia diverticulosis Social History: nicotine: stopped 2018; as above alcohol: none drugs: none - Constitutional Constitutional: Denies chills, Denies fever - EENT Eyes: denies blurred vision, denies pain Ears: deny: decreased hearing, tinnitus Ears, nose, mouth and throat: Denies headache, Denies sore throat - Breasts Breasts: bilateral: as per HPI - Cardiovascular Cardiovascular: Denies chest pain, Denies shortness of breath - Respiratory Respiratory: Denies cough - Gastrointestinal Gastrointestinal: Reports constipation, Reports diarrhea, Denies abdominal pain, Denies nausea, Denies vomiting - Genitourinary (Female) Genitourinary: Denies dysuria, Denies hematuria - Menstruation Menstruation: Reports postmenopausal - Musculoskeletal Musculoskeletal: Denies myalgias - Integumentary Integumentary: Denies pruritus, Denies rash - Neurological Neurological: Denies numbness, Denies weakness - Psychiatric Psychiatric: Denies anxiety, Denies depression - Endocrine Comment: hypothyroid - Hematologic/Lymphatic Comment: none - Allergic/Immunologic Comment: baby aspirin Allergic/Immunologic: Reports seasonal allergies Past Medical History Past Medical History: Hyperlipidemia, Thyroid Disorder Additional Past Medical History / Comment(s): diverticulosis History of Any Multi-Drug Resistant Organisms: None Reported Past Surgical History: Adenoidectomy, Section, Cholecystectomy, Hysterectomy, Orthopedic Surgery, Tonsillectomy Additional Past Surgical History / Comment(s): Right knee repair. Ovarian cyst removel. Past Anesthesia/Blood Transfusion Reactions: No Reported Reaction Past Psychological History: No Psychological Hx Reported Smoking Status: Former smoker Past Alcohol Use History: None Reported Additional Past Alcohol Use History / Comment(s): quit smoking 2017 Past Drug Use History: None Reported Medications and Allergies Home Medications Medication Instructions Recorded Confirmed Type Aspirin [Adult Low Dose Aspirin EC] 81 mg PO DAILY 05/28/22 05/28/22 History Atorvastatin [Lipitor] 20 mg PO DAILY 05/28/22 05/28/22 History Cholecalciferol [Vitamin D3 (10 10 mcg PO DAILY 05/28/22 05/28/22 History Mcg = 400 Iu)] Levothyroxine Sodium [Levoxyl] 125 mcg PO DAILY 05/28/22 05/28/22 History Multivitamin [Multivitamins Adult 1 tab PO DAILY 05/28/22 05/28/22 History Gummies] Allergies Allergy/AdvReac Type Severity Reaction Status Date / Time tetracycline Allergy Swelling Verified 05/28/22 12:57 levofloxacin [From Levaquin] AdvReac Nausea & Verified 05/28/22 12:57 Vomiting & Diarrhea Objective - Constitutional General appearance: Present: cooperative - EENT Eyes: Present: EOMI ENT: Present: hearing grossly normal - Neck Neck: Present: normal ROM - Respiratory Respiratory: bilateral: CTA - Cardiovascular Heart sounds: normal: S1, S2 - Integumentary Integumentary: Present: normal turgor - Musculoskeletal Musculoskeletal: Present: gait normal - Psychiatric Psychiatric: Present: A&O x's 3, appropriate affect, intact judgment & insight - Additional findings Additional findings: Breast Exam: BRA: 42DD Inspection: right breast grade 3 ptosis palpation: right chest wall: Chest wall no dominant masses or nodules of concern, well- healed scar Right axilla: No adenopathy of concern Left breast: Multi-positional exam fibrocystic changes no dominant masses or nodules of concern Left axilla: No adenopathy of concern Assessment and Plan Assessment: Impression: hypothyroid hyperlipedemia diverticulosis right breast [id number]-G2 ductal carcinoma Plan: Status post right mastectomy Macromastia left breast symptomatic, at this time she does not want any surgery for the left breast and her asymmetry Left breast mammogram in 6 months with examination at that time Continue femora fofllow up sooner any concerns CC: Dr. Dewitt
[2023-10-28 11:26] VITALS: BP 153/82; PULSE 77; RESP 16; TEMP 98.4
== END ==
LOC: WWCWWP 09:36
PROVIDERS: ATTEND Surgery
DX: C50.411 Malignant neoplasm of upper-outer quadrant of right female breast (principal); C50.611 Malignant neoplasm of axillary tail of right female breast; N62 Hypertrophy of breast; N63.32 Unspecified lump in axillary tail of the left breast; N64.89 Other specified disorders of breast; Z17.0 Estrogen receptor positive status [ER+]; Z90.11 Acquired absence of right breast and nipple; Z87.891 Personal history of nicotine dependence; Z88.1 Allergy status to other antibiotic agents

== ENCOUNTER → 2024-04-30 | Outpatient (CLI) | payer BC ==
--- NOTE | 2024-05-01 09:12 | MM ---
Reason for Exam: Additional evaluation requested from prior study. Last mammogram was performed 1 year(s) and 1 month(s) ago. Patient History: Menarche at age 14. First Full-Term at age 20. Hysterectomy at age 34. Postmenopausal. Patient has history of breast feeding. Breast cancer, right, age 61. Previous chest radiation therapy at age 62. Previous chemotherapy at age 62. 07/20/2022, Mastectomy on the Right side. 06/09/2022, Malignant US biopsy breast VAD RT on the right side. 06/09/2022, US breast needle core RT on the Right side. Prior Study Comparison: 10/07/2021 Bilateral MG 3D screening mammo w/cad, [facility]. 05/27/2022 Bilateral MG 3D diag mammo w/cad [facility], [facility]. 06/09/2022 Right MG diagnostic mammo RT wo CAD, [facility]. 04/05/2023 Left MG 3D diag mammo w/cad , [facility]. Tissue Density: Left: The breasts are heterogeneously dense, which may obscure small masses. Findings: Analyzed By CAD. No persistent mass or distortion. No suspicious mitral calcifications. Overall Assessment: Benign, BI-RAD 2 Management: Diagnostic Mammogram of the left breast in 6 months. . Results were given to the patient verbally at the time of exam. Patient should continue monthly self-breast exams. A clinical breast exam by your physician is recommended on an annual basis. This exam should not preclude additional follow-up of suspicious palpable abnormalities. Note on Blanche scores and lifetime risk: 1. A Blanche score greater than 3% is considered moderate risk. If this is the case, consider specialist referral to assess eligibility for a risk reducing agent. 2. If overall lifetime risk for the development of breast cancer is 20% or higher, the patient may qualify for future screening with alternating mammogram and breast MRI. [facility], , 05/01/2024 9:08 AM. Electronically signed and approved by: Yeyo Jackson M.D. Radiologis
== END | disposition home or self-care (01) ==
LOC: RADMAMWWP 08:59
PROVIDERS: ATTEND Surgery
DX: Z85.3 Personal history of malignant neoplasm of breast (principal); Z78.0 Asymptomatic menopausal state; Z90.11 Acquired absence of right breast and nipple; R92.332 Mammographic heterogeneous density, left breast
CPT/HCPCS: 77061; 77065

== ENCOUNTER → 2024-05-03 | Outpatient (CLI) | payer BC ==
[2024-05-03 11:56] VITALS: BP 146/82; PULSE 83; RESP 17; TEMP 98.1
--- NOTE | 2024-05-03 12:04 | P.PN ---
Subjective Progress Note Date: 05/03/24 Principal diagnosis: right breast [id number]+Her2-G2 invasive ductal cancer mastectomy 07-20-22 05-03-24 Principal diagnosis: right breast [id number]+Pr+Her2-G2 invasive ductal cancer mastectomy 07-20-22 Cora on 06-09-22 underwent a core biopsy of a mass in the right breast and lymph node were done. The mass was invasive ductal cancer G2, ER+KS-Her2-. The lymph node biopsy was benign. An axillary ultrasound was done on 06-16-22 which did not show any adenopathy of concern. Genetic testing declined The patient had a right mastectomy and SNB preformed on 07-20-22 The patient has declined seeing a plastic surgeon and is not interested in reconstruction at this time She is not complaining of any lumps masses or nodules on her chest wall or in her left breast. She was not recommended to have any radiation therapy Her oncotype was 65; she completed four cycles of Taxotere/Cytoxin and was hosptialized after the last cycle with neutropenic fever; has completed chemotherapy. She is presently on letrazol . She is not complaining of any side effects. Patient does have asymmetry secondary to her right mastectomy. She notes that it is difficult to find clothes to fit well. And she is listing to the side of her left breast. She wears a DD bra for the left . She left breast mammogram on 04-30-24 which was benign BIRADS 2 note medical oncology 06-29-[address] Mcdonald; continue femora She is not complaining of any new lumps masses or nodules of concern in her chest wall or in her left breast. She is tolerating the Femara without difficulty. She is dealing with a porlapsed bladder and is doing physical therapy, she was told a bladder sling would be a choice but at this time she is considering a second opinion she also complains of worse arthritis in her right knee saw orthopedic surgion and told a knee replacement but is waiting at this time Caffeine: 2 cups/day nicotine: stopped 2018 smoked for 10 years; 1/PPD chocolate: rare BCP: early for treatment of ovarian cyst Hormones: Negative Family History: mother: colon cancer father: lung cancer smoker maternal grandmother: colon cancer Patient had a colonoscopy 2021; to have it repeated in 2024 Hormonal History: menarche: 14 , breast fed: yes; age at first : 20 menopause: hysterectomy at 34; ? age at menopause done for endometriosis Surgical History: hysgterectomy tonsil/addenoid 2 ovarian surgeries right knee gallbladder 2 C-sections Medical History: hypothyroid hyperlipedemia diverticulosis Social History: nicotine: stopped 2018; as above alcohol: none drugs: none - Constitutional Constitutional: Denies chills, Denies fever - EENT Eyes: denies blurred vision, denies pain Ears: deny: decreased hearing, tinnitus Ears, nose, mouth and throat: Denies headache, Denies sore throat - Breasts Breasts: bilateral: as per HPI - Cardiovascular Cardiovascular: Denies chest pain, Denies shortness of breath - Respiratory Respiratory: Denies cough - Gastrointestinal Gastrointestinal: Reports constipation, Reports diarrhea, Denies abdominal pain, Denies nausea, Denies vomiting - Genitourinary (Female) Genitourinary: Denies dysuria, Denies hematuria - Menstruation Menstruation: Reports postmenopausal - Musculoskeletal Musculoskeletal: Denies myalgias - Integumentary Integumentary: Denies pruritus, Denies rash - Neurological Neurological: Denies numbness, Denies weakness - Psychiatric Psychiatric: Denies anxiety, Denies depression - Endocrine Comment: hypothyroid - Hematologic/Lymphatic Comment: none - Allergic/Immunologic Comment: baby aspirin Allergic/Immunologic: Reports seasonal allergies Past Medical History Past Medical History: Hyperlipidemia, Thyroid Disorder Additional Past Medical History / Comment(s): diverticulosis History of Any Multi-Drug Resistant Organisms: None Reported Past Surgical History: Adenoidectomy, Section, Cholecystectomy, Hysterectomy, Orthopedic Surgery, Tonsillectomy Additional Past Surgical History / Comment(s): Right knee repair. Ovarian cyst removel. Past Anesthesia/Blood Transfusion Reactions: No Reported Reaction Past Psychological History: No Psychological Hx Reported Smoking Status: Former smoker Past Alcohol Use History: None Reported Additional Past Alcohol Use History / Comment(s): quit smoking 2017 Past Drug Use History: None Reported Medications and Allergies Home Medications Medication Instructions Recorded Confirmed Type Aspirin [Adult Low Dose Aspirin EC] 81 mg PO DAILY 05/28/22 05/28/22 History Atorvastatin [Lipitor] 20 mg PO DAILY 05/28/22 05/28/22 History Cholecalciferol [Vitamin D3 (10 10 mcg PO DAILY 05/28/22 05/28/22 History Mcg = 400 Iu)] Levothyroxine Sodium [Levoxyl] 125 mcg PO DAILY 05/28/22 05/28/22 History Multivitamin [Multivitamins Adult 1 tab PO DAILY 05/28/22 05/28/22 History Gummies] Allergies Allergy/AdvReac Type Severity Reaction Status Date / Time tetracycline Allergy Swelling Verified 05/28/22 12:57 levofloxacin [From Levaquin] AdvReac Nausea & Verified 05/28/22 12:57 Vomiting & Diarrhea Objective - Constitutional General appearance: Present: cooperative - EENT Eyes: Present: EOMI ENT: Present: hearing grossly normal - Neck Neck: Present: normal ROM - Respiratory Respiratory: bilateral: CTA - Cardiovascular Rhythm: regular Heart sounds: normal: S1, S2 - Integumentary Integumentary: Present: normal turgor - Musculoskeletal Musculoskeletal: Present: gait normal - Psychiatric Psychiatric: Present: A&O x's 3, appropriate affect, intact judgment & insight - Additional findings Additional findings: Breast Exam: BRA: 42DD Inspection: right breast grade 3 ptosis palpation: right chest wall: Chest wall no dominant masses or nodules of concern, well- healed scar Right axilla: No adenopathy of concern Left breast: Multi-positional exam fibrocystic changes no dominant masses or nodules of concern, fungal infection under her left breast (recently changed to crestor and told not to used antifungals) Left axilla: No adenopathy of concern Assessment and Plan Assessment: Impression: hypothyroid hyperlipedemia diverticulosis right breast [id number]-G2 ductal carcinoma fungal infection under left breast Plan: Status post right mastectomy Macromastia left breast symptomatic, at this time she does not want any surgery for the left breast and her asymmetry Left breast mammogram in 12 months with examination at that time Continue femora Primary care doctor about a possible antifungal medication secondary to the fact that she is on Crestor follow up sooner any concerns CC: Dr. Dewitt
== END ==
LOC: WWCWWP 09:48
PROVIDERS: ATTEND Surgery
DX: C50.911 Malignant neoplasm of unspecified site of right female breast (principal); R92.8 Other abnormal and inconclusive findings on diagnostic imaging of breast; E03.9 Hypothyroidism, unspecified; E78.5 Hyperlipidemia, unspecified; K57.90 Diverticulosis of intestine, part unspecified, without perforation or abscess without bleeding; N62 Hypertrophy of breast; B48.8 Other specified mycoses; Z90.11 Acquired absence of right breast and nipple; Z17.0 Estrogen receptor positive status [ER+]; Z17.22 Progesterone receptor negative status; Z88.1 Allergy status to other antibiotic agents

== ENCOUNTER → 2024-10-29 | Outpatient (CLI) | payer MEDICARE, BC ==
--- NOTE | 2024-10-29 13:50 | MM ---
Reason for Exam: Hx of breast cancer, mastectomy. Last screening mammogram was performed 6 month(s) ago. Patient History: Menarche at age 14. First Full-Term at age 20. Hysterectomy at age 34. Postmenopausal. Patient has history of breast feeding. Breast cancer, right, age 61. Previous chest radiation therapy at age 62. Previous chemotherapy at age 62. 07/20/2022, Mastectomy on the Right side. 06/09/2022, Malignant US biopsy breast VAD RT on the right side. 06/09/2022, US breast needle core RT on the Right side. Prior Study Comparison: 06/09/2022 Right MG diagnostic mammo RT wo CAD, [facility]. 04/05/2023 Left MG 3D diag mammo w/cad [facility], [facility]. 04/30/2024 Left MG 3D diag mammo w/cad LT, [facility]. Tissue Density: Left: There are scattered areas of fibroglandular density. Findings: Analyzed By CAD. No significant change from prior exams. Overall Assessment: Negative, BI-RAD 1 Management: Screening Mammogram of the left breast in 1 year. Results were given to the patient verbally at the time of exam. Patient should continue monthly self-breast exams. A clinical breast exam by your physician is recommended on an annual basis. This exam should not preclude additional follow-up of suspicious palpable abnormalities. [facility], , 10/29/2024 1:46 PM. Electronically signed and approved by: Luh Lofton M.D. Radiologist
== END | disposition home or self-care (01) ==
LOC: RADMAMWWP 13:23
PROVIDERS: ATTEND Surgery
DX: R92.322 Mammographic fibroglandular density, left breast (principal); Z85.3 Personal history of malignant neoplasm of breast; Z78.0 Asymptomatic menopausal state
CPT/HCPCS: 77065; G0279; 77061

== ENCOUNTER → 2024-11-14 | Outpatient (CLI) | payer BC ==
[2024-11-14 14:36] VITALS: BP 169/95; PULSE 80; RESP 17; TEMP 97.9
--- NOTE | 2024-11-14 14:53 | P.PN ---
Subjective Progress Note Date: 11/14/24 Principal diagnosis: right breast [id number]-Her2-G2 ductal carcinoma; 2022 10/28/23 Principal diagnosis: right breast [id number]+Her2-G2 invasive ductal cancer mastectomy 07-20-22 11-14-24 Principal diagnosis: right breast [id number]+Pr+Her2-G2 invasive ductal cancer mastectomy 07-20-22 Cora is a 64 year old white female seen in consultation for Dr. Dewitt regarding a mass in the right breast. She had a bilateral mammogram in September 2021 after which she was recommended to have a repeat right breast mammogram in 6 months. Most recently she noted a lump in her right breast May 19 and had a right breast mammogram and ultrasound performed revealing a lesion in the right breast which had changed from the September evaluation. She did not feel any other lumps masses or nodules of concern in either breast. She had not had any trauma to her breast. She was not complaining of any nipple discharge or skin changes. She had never had any surgery on her breast. The ultrasound revealed a 3.4 x 3.3 cm hypoechoic vascular mass at 11:00 There was also an adjacent prominent low axillary tail lymph node with cortical thickening up to 3.3 mm no other axillary lymphadenopathy On 06-09-22 a core biopsy of the mass in the right breast and lymph node were done. The mass was invasive ductal cancer G2, ER+IN-Her2-. The lymph node biopsy was benign. An axillary ultrasound was done on 06-16-22 which did not show any adenopathy of concern. Note 11-26-22 Dr. Rangel medical oncology reviewed Genetic testing declined at this time. The patient had a right mastectomy and SNB preformed on 07-20-22 The patient has declined seeing a plastic surgeon and is not interested in reconstruction at this time She is not complaining of any lumps masses or nodules on her chest wall or in her left breast. She was not recommended to have any radiation therapy Her oncotype was 65; she completed four cycles of Taxotere/Cytoxin and was hosptialized after the last cycle with neutropenic fever; has completed chemotherapy. She is presently on letrazol . She is not complaining of any side effects. Patient does have asymmetry secondary to her right mastectomy. She notes that it is difficult to find clothes to fit well. And she is listing to the side of her left breast. She wears a DD bra for the left . She left breast mammogram on 10-29-24 which was benign BIRADS 1 note medical oncology 07-24-[address] 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 She is tolerating the Femara without difficulty. She is dealing with a prolapsed bladder and is doing physical therapy, she also complains of worse arthritis in her right knee Caffeine: 2 cups/day nicotine: stopped 2018 smoked for 10 years; 1/PPD chocolate: rare BCP: early for treatment of ovarian cyst Hormones: Negative Family History: mother: colon cancer father: lung cancer smoker maternal grandmother: colon cancer Patient had a colonoscopy 2021; to have it repeated in 2024 Hormonal History: menarche: 14 , breast fed: yes; age at first : 20 menopause: hysterectomy at 34; ? age at menopause done for endometriosis Surgical History: hysgterectomy tonsil/addenoid 2 ovarian surgeries right knee gallbladder 2 C-sections Medical History: hypothyroid hyperlipedemia diverticulosis Social History: nicotine: stopped 2018; as above alcohol: none drugs: none - Constitutional Constitutional: Denies chills, Denies fever - EENT Eyes: denies blurred vision, denies pain Ears: deny: decreased hearing, tinnitus Ears, nose, mouth and throat: Denies headache, Denies sore throat - Breasts Breasts: bilateral: as per HPI - Cardiovascular Cardiovascular: Denies chest pain, Denies shortness of breath - Respiratory Respiratory: Denies cough - Gastrointestinal Gastrointestinal: Reports constipation, Reports diarrhea, Denies abdominal pain, Denies nausea, Denies vomiting - Genitourinary (Female) Genitourinary: Denies dysuria, Denies hematuria - Menstruation Menstruation: Reports postmenopausal - Musculoskeletal Musculoskeletal: Denies myalgias - Integumentary Integumentary: Denies pruritus, Denies rash - Neurological Neurological: Denies numbness, Denies weakness - Psychiatric Psychiatric: Denies anxiety, Denies depression - Endocrine Comment: hypothyroid - Hematologic/Lymphatic Comment: none - Allergic/Immunologic Comment: baby aspirin Allergic/Immunologic: Reports seasonal allergies Past Medical History Past Medical History: Hyperlipidemia, Thyroid Disorder Additional Past Medical History / Comment(s): diverticulosis History of Any Multi-Drug Resistant Organisms: None Reported Past Surgical History: Adenoidectomy, Section, Cholecystectomy, Hysterectomy, Orthopedic Surgery, Tonsillectomy Additional Past Surgical History / Comment(s): Right knee repair. Ovarian cyst removel. Past Anesthesia/Blood Transfusion Reactions: No Reported Reaction Past Psychological History: No Psychological Hx Reported Smoking Status: Former smoker Past Alcohol Use History: None Reported Additional Past Alcohol Use History / Comment(s): quit smoking 2017 Past Drug Use History: None Reported Medications and Allergies Home Medications Medication Instructions Recorded Confirmed Type Aspirin [Adult Low Dose Aspirin EC] 81 mg PO DAILY 05/28/22 05/28/22 History Atorvastatin [Lipitor] 20 mg PO DAILY 05/28/22 05/28/22 History Cholecalciferol [Vitamin D3 (10 10 mcg PO DAILY 05/28/22 05/28/22 History Mcg = 400 Iu)] Levothyroxine Sodium [Levoxyl] 125 mcg PO DAILY 05/28/22 05/28/22 History Multivitamin [Multivitamins Adult 1 tab PO DAILY 05/28/22 05/28/22 History Gummies] Allergies Allergy/AdvReac Type Severity Reaction Status Date / Time tetracycline Allergy Swelling Verified 05/28/22 12:57 levofloxacin [From Levaquin] AdvReac Nausea & Verified 05/28/22 12:57 Vomiting & Diarrhea Objective - Vital Signs Vital signs: Vital Signs Temp 97.9 F 11/14/24 14:33 Pulse 80 11/14/24 14:33 Resp 17 11/14/24 14:33 BP 169/95 11/14/24 14:33 Pulse Ox 96 11/14/24 14:33 FiO2 Intake & Output 11/13/24 11/14/24 11/14/24 18:59 06:59 18:59 Weight 92.986 kg - Constitutional General appearance: Present: cooperative - EENT Eyes: Present: EOMI ENT: Present: hearing grossly normal - Neck Neck: Present: normal ROM - Respiratory Respiratory: bilateral: CTA - Cardiovascular Rhythm: regular Heart sounds: normal: S1, S2 - Integumentary Integumentary: Present: normal turgor - Musculoskeletal Musculoskeletal: Present: gait normal - Psychiatric Psychiatric: Present: A&O x's 3, appropriate affect, intact judgment & insight - Additional findings Additional findings: Breast Exam: BRA: 42DD Inspection: left breast grade 3 ptosis palpation: right chest wall: Chest wall no dominant masses or nodules of concern, well- healed scar Right axilla: No adenopathy of concern Left breast: Multi-positional exam fibrocystic changes no dominant masses or nodules of concern Left axilla: No adenopathy of concern Assessment and Plan Assessment: Impression: hypothyroid hyperlipedemia diverticulosis right breast [id number]-Her2-G2 ductal carcinoma Peripheral neuropathy improved on the vitamins Plan: Status post right mastectomy Macromastia left breast symptomatic, at this time she does not want any surgery for the left breast and her asymmetry Left breast mammogram in 1 year with examination Follow-up in 6 months for surveillance Continue femora follow up sooner any concerns CC: Dr. Dewitt
== END ==
LOC: WWCWWP 14:20
PROVIDERS: ATTEND Surgery
DX: D05.11 Intraductal carcinoma in situ of right breast (principal); E03.9 Hypothyroidism, unspecified; E78.5 Hyperlipidemia, unspecified; K57.90 Diverticulosis of intestine, part unspecified, without perforation or abscess without bleeding; G62.9 Polyneuropathy, unspecified; Z88.1 Allergy status to other antibiotic agents